=== PATIENT | female | born 1940 | race Caucasian/White ===

== ENCOUNTER → 2016-12-04 | Outpatient (CLI) | payer OTHER ==
--- NOTE | 2016-12-04 12:33 | DIAGNOSTIC IMAGING REPORT ---
BILATERAL LOWER EXTREMITY VENOUS DOPPLER HISTORY: Pain. Edema. J44.9 Chronic obstructive pulmonary disease COMPARISON STUDY: None. FINDINGS: There is normal compressibility, flow, and augmentation within the bilateral lower extremity deep venous systems. IMPRESSION: No DVT within the right or left lower extremity. Electronically signed by: Andrew Wilkerson M.D. 12/04/2016 12:32 PM Dictated Date/Time: 12/04/2016 12:32 PM
== END | disposition home or self-care (01) ==
LOC: C.ULTR 11:58
PROVIDERS: ATTEND Physician Assistant
DX: J44.9 Chronic obstructive pulmonary disease, unspecified (principal); M79.604 Pain in right leg; M79.605 Pain in left leg; R60.0 Localized edema

== ENCOUNTER → 2016-12-11 | Outpatient (CLI) | payer OTHER ==
--- NOTE | 2016-12-12 14:34 | PULMONARY FUNCTION TEST ---
Reading is based off ATS criteria. SPIROMETRY: Mild obstructive ventilatory disease with borderline reversibility. LUNG VOLUMES: Signs of hyperinflation with elevated residual volumes. DIFFUSION CAPACITY: Moderately decreased diffusion capacity. MTDD
== END | disposition home or self-care (01) ==
LOC: C.RC 09:21
PROVIDERS: ATTEND Physician Assistant
DX: J44.9 Chronic obstructive pulmonary disease, unspecified (principal)

== ENCOUNTER 2018-02-21 08:08 | Inpatient (IN) | payer OTHER ==
[2018-02-03 08:45] VITALS: BMI 33.0
--- NOTE | 2018-02-06 11:39 | PAT Medication Instructions ---
Service Date Feb 06, 2018. Current Home Medication List Acetaminophen (Tylenol), 2 TAB PO UD PRN for Pain Albuterol Hfa (Ventolin Hfa), Unknown Dose INH UD Atorvastatin (Lipitor), 1 TAB PO QPM Cholecalciferol (Vitamin D), 1 TAB PO HS Denosumab (Prolia), UD Furosemide (Lasix), 20 MG PO UD Lorazepam (Ativan), 0.5 MG PO UD PRN for anxiety Multiple Vitamins W/ Minerals (Ocuvite Adult 50+), 1 CAP PO QAM Nebivolol Hcl (Bystolic), 20 MG PO QAM Tiotropium [place]-Olodaterol (Stiolto Respimat 2.5-2.5 Mcg/Act), 1 PUFF PO BID Vitamin E (Vitamin E), 1 TAB PO QAM [albuterol neb ], 1 DOSE INH UD PRN for prn Medication Instructions For Your Scheduled Surgery - Hold the following medications 2 weeks prior to surgery: Vitamin E (Vitamin E), 1 TAB PO QAM - Continue as directed: Denosumab (Prolia), UD - Hold the following medications the morning of surgery: Furosemide (Lasix), 20 MG PO UD Multiple Vitamins W/ Minerals (Ocuvite Adult 50+), 1 CAP PO QAM - Take the following medications the morning of surgery with a sip of water: Acetaminophen (Tylenol), 2 TAB PO UD PRN for Pain (okay to take up to 4 hours prior to surgery if needed) Albuterol Hfa (Ventolin Hfa), Unknown Dose INH UD (if needed) Lorazepam (Ativan), 0.5 MG PO UD PRN for anxiety (if needed) Nebivolol Hcl (Bystolic), 20 MG PO QAM Tiotropium [place]-Olodaterol (Stiolto Respimat 2.5-2.5 Mcg/Act), 1 PUFF PO BID [albuterol neb ], 1 DOSE INH UD PRN for prn - Take the following medications as scheduled the night before surgery: Atorvastatin (Lipitor), 1 TAB PO QPM [albuterol neb ], 1 DOSE INH UD PRN for prn (if needed) Cholecalciferol (Vitamin D), 1 TAB PO HS Acetaminophen (Tylenol), 2 TAB PO UD PRN for Pain (if needed) Albuterol Hfa (Ventolin Hfa), Unknown Dose INH UD (if needed) Lorazepam (Ativan), 0.5 MG PO UD PRN for anxiety (if needed) If you have any questions please call us at [phone] or [phone] or [phone]
--- NOTE | 2018-02-06 12:40 | DIAGNOSTIC IMAGING REPORT ---
CHEST 2 VIEWS ROUTINE CLINICAL HISTORY: PAT preoperative evaluation COMPARISON STUDY: 10/29/2016 FINDINGS: Mild stable cardiomegaly. Small fixed lateral hernia. Bibasilar platelike atelectasis. Lungs otherwise appear clear. IMPRESSION: Mild cardia megaly. Platelike atelectasis both lung bases. Otherwise negative study. The above report was generated using voice recognition software. It may contain grammatical, syntax or spelling errors. Electronically signed by: Andrew Wilkerson M.D. 02/06/2018 12:38 PM Dictated Date/Time: 02/06/2018 12:38 PM
[2018-02-06 13:04] LABS: INR 0.9 (0.9-1.1); PTT PATIENT 26.6 SECONDS (21.0-31.0)
[2018-02-06 13:13] LABS: CALCIUM 9.8 mg/dl (8.5-10.1); CREATININE 0.97 mg/dl (0.60-1.20); POTASSIUM 3.7 mmol/L (3.5-5.1)
[2018-02-21] VITALS (7 sets, daily range): BP systolic 125–184; BP diastolic 75–84; PULSE 64–73; TEMP 36.4–36.6; O2SAT 94–100; Ht 144.8 cm; Wt 69.1 kg
[~2018-02-21] VITALS: Ht 144.8 cm; Wt 69.1 kg
[~2018-02-21 08:08] MED LIST: ACET-1256 PO; ACETAMINOPHEN 500 MG TAB PO SCH; CHOL1TAB42 PO; CLINDAMYCIN PHOS 150 MG/ML 2 ML VIAL IV SCH; CeleBREX 200 MG CAP PO SCH; DNSIS60; FENTANYL CITRATE INJ 50 MCG/1 ML 2 ML VIAL ONE; FURO-85 PO; GABAPENTIN 300 MG CAP PO SCH; LACTATED RINGER'S 1000ML 1,000 ML IV SCH; LORA-741 PO; LPT10 PO; MULTCAP94 PO; NEBI20TA2 PO; TIOT1AER PO; VITA1TAB4 PO; VNTHFA/IN INH; albuterol neb INH
[2018-02-21] MEDS ORDERED: HYDROmorphone INJ 0.5 MG/0.5 ML SYR IV PRN ×2 (08:15→13:00)
[2018-02-21] MEDS ORDERED: ONDANSETRON INJ 2 MG/ML 2 ML VIAL IV PRN ×2 (08:15→12:15)
[2018-02-21] MEDS ORDERED: ATROPINE SULFATE 0.1 MG/ML 5ML SYR IV PRN (08:15)
[2018-02-21] MEDS ORDERED: FENTANYL CITRATE INJ 50 MCG/1 ML 2 ML VIAL IV PRN (08:15)
[2018-02-21] MEDS ORDERED: EpHEDrine SULFATE INJ 50 MG/ML AMP IV PRN (08:15)
[2018-02-21] MEDS ORDERED: HYDROmorphone INJ 2 MG/ML SYR/VIAL ONE (09:27)
[2018-02-21] MEDS ORDERED: LIDOCAINE HCL 2% 2 ML VIAL (20MG/ML) ONE (09:27)
[2018-02-21] MEDS ORDERED: LARYING-O-JET KIT (LTA) ONE (09:27)
[2018-02-21] MEDS ORDERED: NEOSTIGMINE METHYLSULFATE 1 MG/ML 10ML VIAL ONE (09:27)
[2018-02-21] MEDS ORDERED: DEXAMETHASONE SOD INJ 4 MG/ML VIAL ONE (09:27)
[2018-02-21] MEDS ORDERED: MIDAZOLAM HCL 1 MG/ML 2ML VIAL ONE (09:27)
[2018-02-21] MEDS ORDERED: ONDANSETRON INJ 2 MG/ML 2 ML VIAL ONE ×2 (09:27→12:16)
[2018-02-21] MEDS ORDERED: PROPOFOL IV EMULSION 10 MG/ML 20 ML VIAL ONE (09:27)
[2018-02-21] MEDS ORDERED: SODIUM CHLORIDE 0.9% INJ 10 ML VIAL ONE (09:27)
[2018-02-21] MEDS ORDERED: GLYCOPYRROLATE INJ 0.2 MG/ML VIAL ONE ×2 (09:27→12:16)
[2018-02-21] MEDS ORDERED: CLINDAMYCIN 600 MG/54 ML D5W IV ONE (09:32)
--- NOTE | 2018-02-21 10:03 | History & Physical Bridge Note ---
H&P Re-Evaluation Bridge Note: I have examined the patient, reviewed the History & Physical and in the interval since the performance of the History & Physical I have noted the following changes of clinical significance: No changes noted
--- NOTE | 2018-02-21 10:05 | History and Physical ---
History & Physical Date Feb 21, 2018. Chief Complaint Back and bilateral leg pain History of Present Illness The patient is a 77 year old female with complaints of back and bilateral leg pain Additional History Hepatic Disease: No Endocrine Disorder: No Kidney Disease: No Hypertension: Yes Heart Disease: No Bleeding Tendencies: No Infectious Diseases: No Allergies Coded Allergies: No Known Allergies (Unverified , 02/21/18) Home Medications Scheduled Atorvastatin (Lipitor), 1 TAB PO QPM Cholecalciferol (Vitamin D), 1 TAB PO HS Denosumab (Prolia), UD Furosemide (Lasix), 20 MG PO UD Multiple Vitamins W/ Minerals (Ocuvite Adult 50+), 1 CAP PO QAM Nebivolol Hcl (Bystolic), 20 MG PO QAM Tiotropium [place]-Olodaterol (Stiolto Respimat 2.5-2.5 Mcg/Act), 1 PUFF PO BID Vitamin E (Vitamin E), 1 TAB PO QAM Scheduled PRN Acetaminophen (Tylenol), 2 TAB PO UD PRN for Pain Albuterol Hfa (Ventolin Hfa), Unknown Dose INH Q6 PRN for Cough Lorazepam (Ativan), 0.5 MG PO UD PRN for anxiety [albuterol neb ], 1 DOSE INH UD PRN for prn Diagnosis Lumbar spinal stenosis with neurogenic claudication and spondylolisthesis Plan of Treatment L3-S1 decompression instrumented versus in situ fusion L4-S1
[2018-02-21] MEDS ORDERED: BUPIVACAINE/EPINEPHRINE 0.5% MPF 1:200,000 30 ML VIAL ONE (10:31)
[2018-02-21] MEDS ORDERED: BACITRACIN 50000 UNIT VIAL ONE (10:31)
[2018-02-21] MEDS ORDERED: FLOSEAL HEMOSTATIC MATRIX 10ML TOP ONE (12:05)
[2018-02-21] MEDS: SODIUM CHLORIDE 0.9% 1000ML 1,000 ML IV SCH ×2 (12:12→21:18)
--- NOTE | 2018-02-21 12:12 | [facility] Operative Report ---
Operative Report Operative Date Feb 21, 2018. Pre-Operative Diagnosis Lumbar spinal stenosis with neurogenic claudication and spondylolisthesis Post-Operative Diagnosis same as preop Procedure(s) Performed 1. Lumbar decompression medial facetectomies foraminotomies L3-4 L4-5 L5-S1. #2 posterior spinal fusion L3-4 L4-5 L5-S1. #3 placement of infuse collagen sponge combined with master graft and local autograft in the posterior lateral gutters. Surgeon Dr. Ash Parra Clinical Education Academic Coordinator Surgeon(s) Randal Steele PA-C Estimated Blood Loss 150ML Findings Severe spinal stenosis Specimens none per surgeon Anesthesia Type General Description of Procedure Patient was met with preoperatively case discussed all questions addressed. After informed consent obtained patient was taken to the operative suite underwent intubation placed in prone position on the Steven table on top of the Jacob frame. All bony prominences well-padded eyes inspected to ensure no external pressure placed upon but this point the lumbar spine was prepped and draped in normal sterile fashion. Sharp dissection with the assistance of Bovie cautery was performed down to and exposing the lamina and transverse processes of L3-L4-L5 and sacral ala bilaterally. From a caudal to cephalad fashion complete laminectomy L5 for partial laminectomy of L3 is performed addressing severe lateral recess foraminal disease particular on the left. After complete decompression the transverse processes of 345 and sacral ala burred to subcortical bleeding bone. Infuse collagen sponge master graft local autograft placed in the posterior gutters. 15 round JEAN MARIE drain inserted. Incision was then closed with 1 Vicryl fascia 2-0 Vicryl subtends a 4 Monocryl for fashion closure Steri-Strips sterile dressings placed. Patient will continue PACU stable condition. Please note Rikki Steele present at the entire procedure involved in patient positioning complex portions of the surgery and fashion closure. I attest to the content of the Intraoperative Record and any orders documented therein. Any exceptions are noted below.
[2018-02-21] MEDS ORDERED: ACETAMINOPHEN IV 100 ML IV PRN (12:15)
[2018-02-21] MEDS ORDERED: NALOXONE HCL 0.4 MG/1 ML VIAL/CARP IV PRN (12:15)
[2018-02-21] MEDS ORDERED: METOCLOPRAMIDE HCL INJ 5 MG/ML 2 ML VIAL IV PRN (12:15)
[2018-02-21] MEDS ORDERED: MAGNESIUM HYDROXIDE SUSP 30 ML UDC PO PRN (12:15)
[2018-02-21] MEDS ORDERED: DO NOT ADMINISTER FLU VACCINE PRN (12:15)
[2018-02-21] MEDS ORDERED: FAMOTIDINE 20 MG TAB PO PRN (12:15)
[2018-02-21] MEDS ORDERED: hydrOXYzine HCL 25 MG TAB PO PRN (12:15)
[2018-02-21] MEDS ORDERED: PROMETHAZINE HCL INJ 12.5 MG in SODIUM CHLORIDE 0.9% 50ML 50 ML IV PRN (12:15)
[2018-02-21] MEDS ORDERED: ALUMINUM/MAGNESIUM SUSP 30 ML UDC PO PRN (12:15)
[2018-02-21] MEDS ORDERED: LORAZEPAM INJ 0.5 MG in SYRINGE 0 ML IV PRN (12:15)
[2018-02-21] MEDS ORDERED: SOD PHOSPHATE/SOD BIPHOSPHATE ENEMA 132 ML BTL PR PRN (12:15)
[2018-02-21] MEDS ORDERED: DO NOT ADMINISTER PNEUMOCOCCAL VACCINE PRN (12:15)
[2018-02-21] MEDS ORDERED: BISACODYL 10 MG SUPP PR PRN (12:15)
[2018-02-21] MEDS ORDERED: ACETAMINOPHEN 500 MG TAB PO PRN (12:15)
[2018-02-21] MEDS ORDERED: ROCURONIUM BROMIDE 10 MG/ML 5 ML VIAL ONE (12:16)
--- NOTE | 2018-02-21 12:48 | DIAGNOSTIC IMAGING REPORT ---
SPINE ONE VIEW, ANY LEVEL HISTORY: 77 years-old Female L3-S1 INSITU FUSION status post lumbar spinal fusion COMPARISON: CT abdomen and pelvis 11/12/2016 TECHNIQUE: Single lateral spot fluoroscopic image of the lower lumbar spine was obtained utilizing 4.7 seconds fluoroscopy time FINDINGS: Metallic marker is noted overlying the soft tissues posterior to the L5-S1 disc space. Alignment is satisfactory. Multilevel spondylitic spurring and facet arthropathy redemonstrated. IMPRESSION: Fluoroscopic assistance as above. The above report was generated using voice recognition software. It may contain grammatical, syntax or spelling errors. Electronically signed by: Garth Pinto M.D. 02/21/2018 12:47 PM Dictated Date/Time: 02/21/2018 12:45 PM
[2018-02-21] MEDS ORDERED: PHENYLEPHRINE HCL INJ 10 MG/ML VIAL ONE (14:14)
--- NOTE | 2018-02-21 14:35 | Anesthesiology Progress Note ---
Anesthesia Post Op Note Date & Time Feb 21, 2018 at 14:30 Vital Signs Pain Intensity: 9 Vital Signs Past 12 Hours Date Time Temp Pulse Resp B/P (MAP) Pulse Ox O2 Delivery O2 Flow Rate FiO2 02/21/18 14:15 69 12 160/73 98 Oxymask 4 02/21/18 14:05 69 8 158/71 99 Oxymask 10 02/21/18 13:55 68 9 156/73 94 T-piece 40 02/21/18 13:45 69 10 152/70 97 CPAP 45 Mechanical Ventilator 02/21/18 13:35 66 7 143/66 97 CPAP 45 Mechanical Ventilator 02/21/18 13:25 67 8 144/70 96 CPAP 50 Mechanical Ventilator 02/21/18 13:15 70 23 147/79 93 CPAP 25 Mechanical Ventilator 02/21/18 13:13 25 02/21/18 13:05 36.5 69 8 141/69 100 CPAP 25 Mechanical Ventilator 02/21/18 08:49 36.5 73 20 184/80 100 Nasal Cannula Notes Mental Status: alert / awake / arousable, participated in evaluation Pt Amnestic to Procedure: Yes Nausea / Vomiting: adequately controlled Pain: adequately controlled Airway Patency, RR, SpO2: stable & adequate BP & HR: stable & adequate Hydration State: stable & adequate Anesthetic Complications: no major complications apparent Patient had a prolonged wakeup which required us to take the patient to the PACU intubated and placed on pressure support through the ventilator. The patient was breathing spontaneously, was fully reversed and had a regular respiratory pattern but with volumes around 200ml and patient was responsive but only opened her eyes to command. In the PACU, patient was successfully weaned to a T-piece with supplemental oxygen. She slowly became much more awake and responsive and was easily able to squeeze my hand on command and could keep her head elevated from the pillow for at least five seconds. Given that her vital signs were stable, she was responsive and had a RR of 12 I decided to extubate in the PACU. This was done after the patient was suctioned. She had an oxymask placed after extubation and continued with spontaneous respirations with supplemental oxygen. Patient was then weaned to NC oxygen and she denied any pain and only mild nausea. After she met PACU discharge criteria, it was felt she was appropriate to transfer to the floor on continuous pulse oximetry.
[2018-02-21] MEDS: OXYCODONE HCL IR 5 MG TAB (IMMEDIATE RELEASE) PO PRN (17:13)
[2018-02-21] MEDS: FUROSEMIDE 20 MG TAB PO SCH (18:18)
[2018-02-21] MEDS: CEFAZOLIN IV 2,000 MG in SYRINGE 0 ML IV SCH (18:19)
[2018-02-21] MEDS: DOCUSATE SODIUM/SENNA 50/8.6MG TAB PO SCH (20:15)
[2018-02-21] MEDS: ATORVASTATIN 10 MG TAB PO SCH (20:15)
[2018-02-21] MEDS ORDERED: ALBUTEROL HFA 8 GM INHALER INH PRN (21:00)
[2018-02-21] MEDS ORDERED: ALBUT/IPRATROP 3MG/0.5MG NEB 3 ML VIAL INH PRN (21:00)
[2018-02-21] MEDS: STIOLTO~ORDER AWAITING ACTION SCH (23:21)
[2018-02-22] VITALS (8 sets, daily range): BP systolic 102–141; BP diastolic 54–78; PULSE 64–75; TEMP 36.2–37.2; O2SAT 90–94
--- NOTE | 2018-02-22 00:15 | HISTORY & PHYSICAL EXAMINATION ---
DATE OF ADMISSION: 02/21/2018 CHIEF COMPLAINT: Status post back pain who comes for medical management. HISTORY OF PRESENT ILLNESS: A 77-year-old female with past medical history significant for COPD,high blood pressure, status post back surgery, tolerated the procedure okay. Sitting on the bed. Dressing and drain intact. She felt little dizzy and nauseous earlier, but feeling okay now. Has some headache, some blurred vision. She says she has an appointment with eye doctor. Denies any earache, no runny nose, no sore throat, no difficulty swallowing. No chest pain. She has chronic cough, chronic shortness of breath, uses oxygen. She recently went to [facility] for issues for shortness of breath and was treated with steroid and antibiotic in first week of December. She says her cough has improved since then. She has some mild abdominal discomfort. Normal bowel and bladder movements. Appetite is not great. ALLERGIES: No known drug allergies. PAST MEDICAL HISTORY: As mentioned above. PAST SURGICAL HISTORY: Back surgery. MEDICATIONS: The patient is on Ativan as needed, albuterol q. 6 hours p.r.n., vitamin D 5000 units p.o. daily, multivitamins with mineral 1 tablet daily, Stiolto Respimat 1 puff b.i.d., Lipitor 20 mg p.o. q.a.m., Lasix 20 mg Saturday, Saturday, Saturday, and Bystolic 20 mg p.o. daily. FAMILY HISTORY: Mother of heart attack and father is also . SOCIAL HISTORY: Quit smoking prior to coming to the hospital a couple of days ago, prior to that smoked 1 pack in a week. Alcohol, very rarely. REVIEW OF SYMPTOMS: As per HPI. Rest of review of systems negative. PHYSICAL EXAMINATION: GENERAL: The patient is of moderate build, not in distress. VITAL SIGNS: Temperature 36.6, pulse 64, respiratory rate 17, blood pressure 125/76, and oxygen 97% on 2 liters. HEENT: No pallor, no icterus. NECK: No JVD, no neck masses. CARDIOVASCULAR: S1 and S2 heard, regular rate and rhythm, no murmur, no gallop. RESPIRATORY SYSTEM: Clear to auscultation bilaterally. No wheezing, no crackles. ABDOMEN: Soft, bowel sounds present, nontender. No distention. CENTRAL NERVOUS SYSTEM: Nonfocal. EXTREMITIES: No edema. No erythema seen. MUSCULOSKELETAL: Status post back surgery. Dressing and drain intact. LABORATORIES: Not available. ASSESSMENT AND PLAN: This is a 77-year-old female, status post back surgery. 1. Status post back surgery. Further management as per orthopedics. Pain control and DVT prophylaxis and PT/OT as per ortho. 2. History of hypertension. Continue home medication, Bystolic(replaced with atenolol by pharmacy). Monitor the blood pressure. 3. History of hyperlipidemia. Continue statin. 4. History of chronic obstructive pulmonary disease. Continue home nebs and inhalers and oxygen. We will monitor. MTDD
[2018-02-22] MEDS: SODIUM CHLORIDE 0.9% 1000ML 1,000 ML IV SCH (01:46)
[2018-02-22] MEDS: CEFAZOLIN IV 2,000 MG in SYRINGE 0 ML IV SCH (01:46)
[2018-02-22] MEDS: LORAZEPAM 0.5 MG TAB PO PRN (01:47)
[2018-02-22] MEDS: OXYCODONE HCL IR 5 MG TAB (IMMEDIATE RELEASE) PO PRN ×2 (04:09→09:59)
[2018-02-22 06:28] LABS: HEMATOCRIT 33.3 % (37-47); HEMOGLOBIN 10.7 g/dL (12.0-16.0); IG# 0.04 K/uL (0.00-0.02); LYMPH % 4.1 %; LYMPH ABS # 0.53 K/uL (1.2-3.4); MEAN CELL VOLUME 98.8 fL (80-100); MEAN CORPUSCULAR HEMOGLOBIN 31.8 pg (25-34); MEAN CORPUSCULAR HGB CONC 32.1 g/dl (32-36); MEAN PLATELET VOLUME 10.6 fL (7.4-10.4); MONO % 9.3 %; NEUT % 86.3 %; NEUT ABS # 11.12 K/uL (1.4-6.5); PLATELET COUNT 175 K/uL (130-400); RED CELL DISTRIBUTION WIDTH CV 14.9 % (11.5-14.5); RED CELL DISTRIBUTION WIDTH SD 53.3 fL (36.4-46.3); WHITE BLOOD COUNT 12.89 K/uL (4.8-10.8)
[2018-02-22 07:01] LABS: CALCIUM 8.5 mg/dl (8.5-10.1); CREATININE 1.18 mg/dl (0.60-1.20); POTASSIUM 4.1 mmol/L (3.5-5.1)
[2018-02-22] MEDS: STIOLTO~ORDER AWAITING ACTION SCH ×2 (08:00→16:00)
[2018-02-22] MEDS ORDERED: NURSING VERBAL MED ORDER ONE (08:30)
--- NOTE | 2018-02-22 08:55 | Progress Note ---
Progress Note Date of Service Feb 22, 2018. Progress Note Patient's back pain is controlled left leg symptoms improved vital signs stable. On exam she is good strength testing appears comfortable. Assessment status post lumbar decompression fusion. Plan at this time initiate physical therapy today advance her bowel regimen strongly considering rehab facility Saturday.
[2018-02-22] MEDS ORDERED: NEBIVOLOL HCL 20 MG PO SCH (09:00)
--- NOTE | 2018-02-22 18:19 | Progress Note ---
Internal Med Progress Note Date of Service: Feb 22, 2018. Provider Documentation: SUBJECTIVE: Feels fine, minimal pain or discomfort on surgical site No radiation pain on the upper thigh or knee Ambulating independently Patient reports of having flushed feeling in her face and cheeks with itching Concern for possible drug reaction Patient was just taken oxycodone for pain Order for Benadryl DC oxycodone, changed to Toradol as needed OBJECTIVE: Vital Signs-as noted below Exam: General-very pleasant, no apparent distress Eyes-sclera nonicteric, pupils bilateral equal reactive to light extraocular muscles ENT-flushed face, moist oral mucosa Neck-supple, no JVD no carotid bruit trachea midline Lungs-clear to auscultate, no wheeze or Heart-S1 and S2, no murmur Abdomen-soft nontender, no organomegaly bowel sounds Extremities-status post spinal decompression surgery, no lower extremity edema or rash no deformed Neuro-no focal neurological deficit Lab data as noted below. ASSESSMENT & PLAN: LUMBAR SPINAL STENOSIS, Status post spinal decompression surgery POD 1 Recovering well postop PT OT management as per spinal orthopedics HYPERTENSION Blood pressure stable Was on Bystolic (nonformulary at [facility] ) Replaced with atenolol HYPERLIPIDEMIA Continue statin POSSIBLE ALLERGIC REACTION TO DRUG Reports of flushed feeling with redness and itching on face Symptoms started after taking oxycodone Patient never taken any narcotics pain meds in the past Oxycodone discontinue Given Benadryl as needed for symptoms of itching and redness Pain meds changed to Toradol as needed DVT PROPHYLAXIS As per orthopedics SCD and teds Pharmacological anticoagulation avoided for recent spinal surgery DISPOSITION Per orthopedics She is medically stable to be discharged when appropriate by spine surgery Vital Signs: Date Time Temp Pulse Resp B/P (MAP) Pulse Ox O2 Delivery O2 Flow Rate FiO2 02/22/18 15:36 Room Air 02/22/18 15:22 36.2 64 22 110/68 (82) 92 Room Air 02/22/18 11:44 36.6 64 20 110/60 (77) 91 Room Air 02/22/18 09:30 36.6 68 24 130/78 (95) 93 Room Air 02/22/18 08:48 67 132/65 (87) 02/22/18 08:30 36.8 68 22 102/54 (70) 92 Room Air 02/22/18 07:15 Room Air 02/22/18 06:36 36.7 74 18 138/76 (96) 92 Room Air 02/22/18 03:52 36.6 75 17 141/76 (97) 94 Nasal Cannula 2.0 02/21/18 23:15 Nasal Cannula 2.0 02/21/18 23:02 36.4 68 18 130/75 (93) 95 Room Air 02/21/18 20:22 36.6 64 17 125/76 (92) 97 Nasal Cannula 2.0 Lab Results: Results Past 24 Hours Test 02/22/18 06:13 Range/Units White Blood Count 12.89 4.8-10.8 K/uL Red Blood Count 3.37 4.2-5.4 M/uL Hemoglobin 10.7 12.0-16.0 g/dL Hematocrit 33.3 37-47 % Mean Corpuscular Volume 98.8 80-100 fL Mean Corpuscular Hemoglobin 31.8 25-34 pg Mean Corpuscular Hemoglobin Concent 32.1 32-36 g/dl Platelet Count 175 130-400 K/uL Mean Platelet Volume 10.6 7.4-10.4 fL Neutrophils (%) (Auto) 86.3 % Lymphocytes (%) (Auto) 4.1 % Monocytes (%) (Auto) 9.3 % Eosinophils (%) (Auto) 0.0 % Basophils (%) (Auto) 0.0 % Neutrophils # (Auto) 11.12 1.4-6.5 K/uL Lymphocytes # (Auto) 0.53 1.2-3.4 K/uL Monocytes # (Auto) 1.20 0.11-0.59 K/uL Eosinophils # (Auto) 0.00 0-0.5 K/uL Basophils # (Auto) 0.00 0-0.2 K/uL RDW Standard Deviation 53.3 36.4-46.3 fL RDW Coefficient of Variation 14.9 11.5-14.5 % Immature Granulocyte % (Auto) 0.3 % Immature Granulocyte # (Auto) 0.04 0.00-0.02 K/uL Sodium Level 138 136-145 mmol/L Potassium Level 4.1 3.5-5.1 mmol/L Chloride Level 104 98-107 mmol/L Carbon Dioxide Level 28 21-32 mmol/L Anion Gap 6.0 3-11 mmol/L Blood Urea Nitrogen 27 7-18 mg/dl Creatinine 1.18 0.60-1.20 mg/dl Est Creatinine Clear Calc Drug Dose 31.0 ml/min Estimated GFR () 50.8 Estimated GFR (Non- 43.8 BUN/Creatinine Ratio 22.5 10-20 Random Glucose 130 70-99 mg/dl Calcium Level 8.5 8.5-10.1 mg/dl
[2018-02-22] MEDS: KETOROLAC TROMETHAMINE 15 MG/ML VIAL IV PRN (19:56)
[2018-02-22] MEDS: DOCUSATE SODIUM/SENNA 50/8.6MG TAB PO SCH (19:56)
[2018-02-22] MEDS: ATORVASTATIN 10 MG TAB PO SCH (19:57)
[2018-02-23] MEDS: LORAZEPAM 0.5 MG TAB PO PRN ×2 (02:53→16:29)
[2018-02-23 02:57] VITALS: BP 142/62; PULSE 82; TEMP 37.1; O2SAT 92
[2018-02-23] MEDS: POLYETHYLENE (MIRALAX) 17 GM PACK PO SCH ×2 (06:05→12:00)
[2018-02-23 06:38] VITALS: BP 150/63; PULSE 77; TEMP 37; O2SAT 96
[2018-02-23] MEDS: STIOLTO~ORDER AWAITING ACTION SCH ×4 (07:32→21:53)
--- NOTE | 2018-02-23 10:10 | Discharge Instructions ---
Discharge Instructions Date of Service Feb 23, 2018. Admission Reason for Admission: Spinal Stenosis Discharge Discharge Diagnosis / Problem: lumbar stenosis Discharge Goals Goal(s): Improve function Activity Recommendations Activity Limitations: per Instructions/Follow-up section . Instructions / Follow-Up Instructions / Follow-Up ACTIVITY RECOMMENDATIONS: SELF CARE INSTRUCTIONS AFTER THORACIC/LUMBAR FUSIONS 1. You may walk to your tolerance. It is good exercise for your legs and back. Expect some back and intermittent leg aches and pains. 2. You may perform "counter-top" level activities (make a sandwich, efrain with a project, etc.). 3. No bending or lifting of more than 10 pounds or back twisting of any nature (roll like a log when turning in bed). 4. You may ride in a car for 20-30 minutes at a time. No driving until after your first visit with your doctor. 5. Frequent changes of position and restricting sitting to 30 minutes at a time will help limit the amount of back spasms and stiffness you may experience. 6. You may discontinue the use of ambulatory aids (cane, crutches, etc.) once your strength and confidence allow. 7. You may office technology instructor the shower and let water strike your incision when you arrive home at least once daily. Do not take a tub bath, sit in a hot tub or go into a swimming pool until after your first recheck in the office. SPECIAL CARE INSTRUCTIONS: VERY IMPORTANT TO READ AND REVIEW A. Your surgical incision has been closed with a cosmetic suture under the skin that will dissolve in about 6 weeks. In 14 days, you can use a pair of clean scissors and cut the suture that is left outside of the skin at the ends of your incision. 1. The small skin tapes can be removed 7 days after surgery if they have not fallen off by that point. 2. You may keep the wound open to air as much as possible to promote healing after post-op day number 5 unless told otherwise by your doctor. 3. If you think the wound looks like it is becoming infected (redness or worsening drainage) and/or you are experiencing fever, chill or worsening back pain and muscle spasms, contact the office so that we may evaluate you as soon as possible. B. Complications are uncommon, but please contact us if you have any signs or symptoms of: 1. wound infection (fever higher than 102.5 degrees F, redness, separation of wound, drainage, or increasing pain from the incision) 2. blood clots in legs (pain, swelling, redness and warmth in legs) 3. urinary tract infection (fever higher than 102.5 degrees F, burning upon urination or increased frequency of urination) 4. nerve problems (inability to walk on your toes or heels, numbness, loss of bowel or bladder control) 5. any other symptoms that concern you C. Please call the office at if you have any concerns or questions about your operation or recovery. D. No smoking! Smoking drastically decreases the chance of a solid fusion. E. Do not take any anti-inflammatory medications (Indocin, Advil, Motrin, Aspirin, Naprosyn, etc.) as these may inhibit the chance of a solid fusion. Tylenol is okay to take for pain. MANAGING PAIN AFTER SPINAL SURGERY 1. Narcotic medication is intended for short-term use and will be provided for surgical pain. Surgical pain usually lasts for a period of 4-6 weeks. Narcotic medication includes Percocet, Vicodin, Darvocet, Tylenol #3 or Lortab. 2. Longer-term pain is more appropriately treated with non-narcotic medication such as Tylenol ES. 3. Muscle spasm is not appropriately treated with narcotics. Muscle relaxers such as Soma, Flexeril or Skelaxin can be used along with Tylenol ES. 4. Remember that we all live with some "aches and pains". This is not unusual or uncommon after an injury or as we get older. a. Back pain is expected and may include muscle spasms for 4 to 6 weeks after surgery. The pain should gradually improve. If the pain worsens for no apparent reason, please contact the office. b. Intermittent leg pain may also be experienced and should not be concerned about unless it worsens for no apparent reason. If so, please contact the office. 5. We will provide appropriate medication within the normal guidelines of their prescribed use. We will also be very cautious and aware of potential abuse and extended duration of patients' medication needs. a. Pain medications are for your comfort and to assist with sleep and rest so that the tissue can heal. They are not provided in order to return to normal activity and should not be used through the day. To do so or worsening pain at night can result from ongoing tissue damage and development of tolerance to the prescribed medicine. 6. Please allow 2-3 days to process refills. Prescriptions will not be mailed but must be picked up at the office. FOLLOW UP VISIT: Keep your scheduled follow-up appointment. Any questions, please call the office at . Current Hospital Diet Patient's current hospital diet: Regular Diet Discharge Diet Recommended Diet: Regular Diet Procedures Procedures Performed: 1. Lumbar decompression medial facetectomies foraminotomies L3-4 L4-5 L5-S1. #2 posterior spinal fusion L3-4 L4-5 L5-S1. #3 placement of infuse collagen sponge combined with master graft and local autograft in the posterior lateral gutters. Pending Studies Studies pending at discharge: no Medical Emergencies . Who to Call and When: Medical Emergencies: If at any time you feel your situation is an emergency, please call 911 immediately. . Non-Emergent Contact Non-Emergency issues call your: Primary Care Provider . "Provider Documentation" section prepared by Ash Parra. .
--- NOTE | 2018-02-23 10:50 | Progress Note ---
Progress Note Date of Service Feb 23, 2018. Progress Note Patient's back pain is controlled leg symptoms are improved. Vital signs stable. On exam she is in the chair at bedside is good strength testing. Plan at this time we are considering [facility] versus home with home health Saturday.
[2018-02-23] MEDS ORDERED: NURSING VERBAL MED ORDER ONE (12:15)
[2018-02-23 15:24] VITALS: BP 133/72; PULSE 85; TEMP 37.1; O2SAT 91
[2018-02-23] MEDS: KETOROLAC TROMETHAMINE 15 MG/ML VIAL IV PRN (15:33)
--- NOTE | 2018-02-23 15:47 | Progress Note ---
Internal Med Progress Note Date of Service: Feb 23, 2018. Provider Documentation: pt been doing well medically /does not need a Medicine rounding Chart reviewed will sign off no bill will be charged today Vital Signs: Date Time Temp Pulse Resp B/P (MAP) Pulse Ox O2 Delivery O2 Flow Rate FiO2 02/24/18 07:47 Nasal Cannula 2.0 02/24/18 06:12 37.2 76 18 153/76 (101) 96 Nasal Cannula 2.0 02/23/18 23:30 Room Air 02/23/18 23:25 37.0 82 16 139/66 (90) 93 Room Air 02/23/18 19:10 Room Air 02/23/18 15:33 Room Air 02/23/18 15:24 37.1 85 18 133/72 (92) 91 Room Air
[2018-02-23] MEDS: DOCUSATE SODIUM/SENNA 50/8.6MG TAB PO SCH (19:20)
[2018-02-23] MEDS: ATORVASTATIN 10 MG TAB PO SCH (20:35)
[2018-02-23 23:25] VITALS: BP 139/66; PULSE 82; TEMP 37; O2SAT 93
[2018-02-24] MEDS: LORAZEPAM 0.5 MG TAB PO PRN (00:29)
[2018-02-24] MEDS: KETOROLAC TROMETHAMINE 15 MG/ML VIAL IV PRN (06:05)
[2018-02-24 06:12] VITALS: BP 153/76; PULSE 76; TEMP 37.2; O2SAT 96
[2018-02-24] MEDS: STIOLTO~ORDER AWAITING ACTION SCH ×2 (07:40→16:48)
[2018-02-24] MEDS: FUROSEMIDE 20 MG TAB PO SCH ×2 (07:41→13:55)
[2018-02-24 09:58] VITALS: BP_SYST 132; BP_SYST 153; BP_DIAS 75; BP_DIAS 76; PULSE 76; PULSE 78; TEMP 37.2; O2SAT 92; O2SAT 96
[2018-02-24 10:30] VITALS: BP 109/72; PULSE 90; O2SAT 99
[2018-02-24 15:00] VITALS: BP 132/75; PULSE 78; TEMP 37.2; O2SAT 92
--- NOTE | 2018-02-24 15:52 | Discharge Summary ---
Orthopedic Discharge Summary Admission Date/Reason Feb 21, 2018 at 12:16 Spinal Stenosis. Discharge Date/Disposition Feb 24, 2018 Home Diagnosis Principal Diagnosis: Spinal stenosis with neurogenic claudication Admission Physical Exam As per Admitting History & Physical. Hospital Course Patient underwent lumbar decompression fusion tolerated this well was taken to the orthopedic floor possibly. Postop day #1 leg symptoms were improved she is ambulating she progressed the postop day #2 subsequently was discharged home on postop day #3. Discharge orders chart for further review. Discharge Instructions Please refer to the electronic Patient Visit Report (Discharge Instructions) for additional information.
== END 2018-02-24 17:15 | disposition home or self-care (01) | DRG 460 ==
LOC: C.ACU 08:08 → C.3E 12:16 → ENRESERV 15:11
PROVIDERS: ADMIT Orthopaedic Surgery Orthopaedic Surgery of the Spine; ATTEND Orthopaedic Surgery Orthopaedic Surgery of the Spine
PROC: 0SG1071 Fusion of 2 or more Lumbar Vertebral Joints with Autologous Tissue Substitute, Posterior Approach, Posterior Column, Open Approach (ICD-10-PCS; principal; 2018-02-21 10:15)
PROC: 3E0U0GB Introduction of Recombinant Bone Morphogenetic Protein into Joints, Open Approach (ICD-10-PCS; principal; 2018-02-21 10:15)
PROC: 0SG3071 Fusion of Lumbosacral Joint with Autologous Tissue Substitute, Posterior Approach, Posterior Column, Open Approach (ICD-10-PCS; principal; 2018-02-21 10:15)
DX: M48.062 Spinal stenosis, lumbar region with neurogenic claudication (principal); M43.16 Spondylolisthesis, lumbar region; J44.9 Chronic obstructive pulmonary disease, unspecified; I10 Essential (primary) hypertension; E78.5 Hyperlipidemia, unspecified; L29.8 Other pruritus; T40.2X5A Adverse effect of other opioids, initial encounter; Y92.230 Patient room in hospital as the place of occurrence of the external cause

== ENCOUNTER 2019-07-15 06:43 | Observation (INO) ==
[2019-07-15] MEDS ORDERED: HEPARIN (PORCINE) 1000 UNIT/ML 10 ML (CATH LAB USE ONLY) ONE ×2 (07:38→10:18)
[2019-07-15] MEDS ORDERED: NiCARDipine HCL INJ 2.5 MG/ML 10 ML AMP ONE (07:38)
[2019-07-15] MEDS ORDERED: NITROGLYCERIN/D5W 100MCG/ML 20ML SYR ONE (07:39)
[2019-07-15] MEDS ORDERED: fentaNYL citrate 100 MCG/2 ML VIAL ONE (07:39)
[2019-07-15] MEDS ORDERED: MIDAZOLAM HCL 1 MG/ML 2ML VIAL ONE ×2 (07:39→09:39)
--- NOTE | 2019-07-15 08:25 | History & Physical Bridge Note ---
Date of Service July 15, 2019 History & Physical Bridge Note I have examined the patient, reviewed the History & Physical and in the interval since the performance of the History & Physical I have noted the following changes of clinical significance: no changes noted
--- NOTE | 2019-07-15 08:26 | Pre Anesthesia Assessment ---
Date of Service July 15, 2019 Pre Sedation Assessment Vital Signs Temp Pulse Resp BP Pulse Ox 07/15/19 07:07 36.5 C 77 20 174/98 H 98 Cardiovascular + regular rate and + regular rhythm Respiratory + diminished lung sounds Pre-Sedation Airway Assessment Smoking Status: Never smoker Short, Thick Neck: No Thyromental Distance: > or= 3.5 Finger Breadths Oral Cavity: + WNL Mallampati Class: III ASA: ASA3 NPO Status Date of Last Intake of Fluids: 07/14/19 Date of Last Intake of Solid Food: 07/14/19 Procedure Planning Contraindications for Sedation: none Current Medications Reviewed: Yes Notes The planned sedation has been discussed with the patient. Informed Consent was obtained. I have identified the patient, determined the appropriateness of sedation and have assessed the patient immediately prior to the procedure. All medicine(s) and interventions are by my order.
--- NOTE | 2019-07-15 09:51 | Cardiac Catheterization ---
Cardiac Cath Procedure: Brief Procedure Date July 15, 2019 Pre-Procedure Diagnosis Pre-Procedure Diagnosis: CHF and Cardiothoracic Symptom AUC Score AUC Score: 8 Post-Procedure Diagnosis Post-Procedure Diagnosis: Severe CAD Procedure(s) Performed Procedure(s) Performed: Coronary Angiography and Left Heart Cath Lead Sprinkler Jordan Galaviz MD Sugarcane Planter(s) Dinesh Caldera Estimated Blood Loss Estimated Blood Loss: <25 Medication(s) Medication(s): Fentanyl (12.5 mcg IVx3), Heparin (4000 units IV), Lidocaine 1% (Local infiltration access site), Nicardipine (250 mcg intra-arterial x 4 after arterial sheath insertion and during procedure), Nitroglycerin (200 mcg intrarterial x 2) and Versed (1 mg IV x 2) Preliminary Findings Right dominant coronary anatomy Diffuse coronary atherosclerosis all vasculature with vessel tortuosity and mild ectasia Left main: Mildly calcified without obstruction Left anterior descending: Type III in distribution modest in caliber. It gives rise to a large diagonal and large septal branch at the end of its proximal third. Within the left anterior descending there is diffuse atherosclerotic changes and proximal calcification with a long area of narrowing in its proximal segment most severe 40% stenosis. Left circumflex: Moderately large but nondominant. It gives rise to a small first marginal or large second marginal then a bifurcating third marginal before continuing along the AV groove is a thin vessel. There are diffuse moderate irregularities. The origin of the second marginal branch is narrowed by 60 to 70%. Right coronary artery: Very large dominant vessel giving rise to a sinoatrial branch at its origin a right ventricular branch in its midportion, a very large marginal branch along the AV groove along posterior descending artery and then to posterior ventricular branch is a small caliber. There is moderate irregularities within the right coronary artery with a discrete 70% stenosis in its midportion LV angiography: Not performed LVEDP 12 Recommendations Recommendations: PCI without planned CABG Specimens Specimens: None Fluids (cc crystalloids) Fluids (cc crystalloids): 114 Procedural Complication(s) None Disposition PCI same setting
--- NOTE | 2019-07-15 10:11 | Cardiac Catheterization ---
Cardiac Cath Procedure Full Procedure Date July 15, 2019 Pre-Procedure Diagnosis Pre-Procedure Diagnosis: CHF and Cardiothoracic Symptom AUC Score AUC Score: 8 Post-Procedure Diagnosis Post-Procedure Diagnosis: Severe CAD Procedure(s) Performed Procedure(s) Performed: Coronary Angiography and Left Heart Cath Heel Cutter Jordan Galaviz MD Linux Developer(s) Dinesh Caldera Estimated Blood Loss Estimated Blood Loss: <25 Medication(s) Medication(s): Fentanyl (12.5 mcg IVx3), Heparin (4000 units IV), Lidocaine 1% (Local infiltration access site), Nicardipine (250 mcg intra-arterial x 4 after arterial sheath insertion and during procedure), Nitroglycerin (200 mcg intrarterial x 2) and Versed (1 mg IV x 2) Summary of Findings Right dominant coronary anatomy Diffuse coronary atherosclerosis all vasculature with vessel tortuosity and mild ectasia Left main: Mildly calcified without obstruction Left anterior descending: Type III in distribution modest in caliber. It gives rise to a large diagonal and large septal branch at the end of its proximal third. Within the left anterior descending there is diffuse atherosclerotic changes and proximal calcification with a long area of narrowing in its proximal segment most severe 40% stenosis. Left circumflex: Moderately large but nondominant. It gives rise to a small first marginal or large second marginal then a bifurcating third marginal before continuing along the AV groove is a thin vessel. There are diffuse moderate irregularities. The origin of the second marginal branch is narrowed by 60 to 70%. Right coronary artery: Very large dominant vessel giving rise to a sinoatrial branch at its origin a right ventricular branch in its midportion, a very large marginal branch along the AV groove along posterior descending artery and then to posterior ventricular branch is a small caliber. There is moderate irregularities within the right coronary artery with a discrete 70% stenosis in its midportion LV angiography: Not performed LVEDP 12 Hemodynamics Rest Ao:: 175/67/110 Final Ao: 138/69/100 LV: 187/2/12, LVEDP 12 Recommendations Recommendations: PCI without planned CABG Specimens Specimens: None Radiation Exposure (mGy) 819 Contrast (mls) 97 Fluids (cc crystalloids) Fluids (cc crystalloids): 114 Anesthesia Start time: 842, stop time 944 Procedural Complication(s) Patient had marked tortuosity of subclavian and aortic junction. Initial radial access was used however right coronary catheter is unable to be advanced over wire and access was switched to femoral. Disposition PCI same setting I attest to the content of the Intraoperative Record and any orders documented therein. Any exceptions are noted below. 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 Echocardiogram demonstrates persistent apical as well as inferoseptal wall motion abnormality. Preserved overall LV function CAD Presenation: Stable angina Anginal Classification: CCS III Heart Failure: Yes Cardiogenic Shock within 24 Hours: No Cardiac Arrest within 24 Hours: No Imaging Studies Past 6 Months: Yes Stress Studies Past 6 Months: No Standard Exercise Test: No Stress Echocardiogram: No Stress Testing w/SPECT MPI: No Cardiac CTA: No Coronary Anatomy Dominant: Right Left Main (% Stenosis): Normal LAD (% Stenosis): Proximal (40), Mid (Diffuse moderate atherosclerotic changes without obstruction) and Distal (30, 30) D1 (% Stenosis): Normal D2 (% Stenosis): Normal Circumflex (% Stenosis): Proximal (20) and Mid (30) OM1 (% Stenosis): Normal OM2 (% Stenosis): Proximal (6070) RCA (% Stenosis): Mid (80) R PDA (% Stenosis): Normal (20) R PL1 (% Stenosis): Normal AM (% Stenosis): Normal Left Ventricular Angiography EF (%): N/A Diagnostic Physicians Name: Jordan Galaviz MD Status: Elective Closure Device Percutaneous Entry Location: Radial (Radial access used for initial imaging with marked tortuosity subclavian aorta. Procedure switch to femoral access obtained right coronary anatomy injections and further proceed) Recommendations: PCI without planned CABG
[2019-07-15] MEDS ORDERED: CLOPIDOGREL BISULFATE 300 MG TAB ONE (10:28)
--- NOTE | 2019-07-15 10:40 | Post Anesthesia Assessment ---
Date of Service July 15, 2019 Post Sedation Assessment Vital Signs Temp Pulse Resp BP Pulse Ox 07/15/19 07:07 97.7 F 77 20 174/98 H 98 Recovery Score Activity: Moves 4 extremities Respiration: Deep Breath/Cough Circulation: +/-20% PreAnes Value Consciousness: Fully Awake Oxygen Saturation: O2 needed for >90% Discharge Sedation Level of Care: Fast Track Phase II Post Sedation Plan On clinical assessment, the patient appears to have tolerated the sedation without complications. Patient is recovering as anticipated. Patient will continue to be monitored by nursing and may be discharged when sedation discharge criteria are met per below protocol. Upon Completions of procedure up to 15 minutes continue every 5 minute vital signs and the P.A.R. score; then discharge to a Phase I or Fast Track to Phase I I per the following guidelines: * Discharge Patient to appropriate Phase II area if PAR is 8 or greater or return to pre- procedure baseline. The post - procedure orders will be as directed. * If PAR score is less than 8 or not return to pre-procedure baseline then patient will follow Phase I monitoring till PAR is reached for Phase II. The Phase I may be done in procedure room or may call to secure a Phase I area. * If naloxone or flumazenil are used for reversal, hold in Phase I for continued monitoring from when last reversal dose was given for a minimum of 60 minutes or longer pending the nurse and/or physician discretion of patient condition before discharge to Phase II. Please call the Sedation Physician to re-evaluate and complete post-note for discharge to Phase II area. Do NOT discharge from procedure sedation or Phase 1 until post- sedation evaluation note is complete by procedure /sedation MD Sedation Discharge Instructions to be given to the patient at discharge to home.
[2019-07-15] MEDS ORDERED: ONDANSETRON INJ 2 MG/ML 2 ML VIAL IV PRN (10:42)
[2019-07-15] MEDS ORDERED: SODIUM CHLORIDE 0.9% 1000ML 1,000 ML IV SCH (10:45)
[2019-07-15] MEDS ORDERED: TRAMADOL HCL 50 MG TABLET PO PRN (10:51)
--- NOTE | 2019-07-15 11:06 | Post Operative Brief Note ---
Cardiology Brief Post Op Date of Surgery July 15, 2019 Pre & Post Diagnosis Successful PCI of mid RCA with single GRETCHEN (2.75 x 33 Xience Marti; post-dilated with 3.5 NC). Procedure -- Nature Photographer Wiley Pichardo MD Stuntman Werner Estimated Blood Loss 10 Findings Consistent with Post-Op Diagnosis
[2019-07-15] MEDS ORDERED: NITROGLYCERIN 2% OINTMENT 30GM TUBE EXT ONE (13:11)
[2019-07-15] MEDS ORDERED: NITROGLYCERIN 2% OINTMENT 30GM TUBE ONE (13:16)
[2019-07-15] MEDS: ACETAMINOPHEN 325 MG TAB PO PRN (13:21)
[2019-07-15] MEDS ORDERED: AMLODIPINE BESYLATE 5 MG TAB PO ONE (13:30)
[2019-07-15] MEDS ORDERED: HydrALAZINE HCL 20 MG/ML VIAL IV ONE (14:48)
[2019-07-15] MEDS ORDERED: HydrALAZINE HCL 20 MG/ML VIAL ONE (14:49)
[2019-07-15] MEDS ORDERED: MoRPHine SULFATE 2 MG/ML CARP IV STA (15:01)
[2019-07-15] MEDS ORDERED: MoRPHine SULFATE 2 MG/ML CARP ONE (15:02)
--- NOTE | 2019-07-15 16:05 | Cardiology Progress Note ---
Date of Service July 15, 2019 Subjective Asked to see patient with using her right groin and wrist site Pressure being held at right wrist site. Small amount of superficial blood under dressing at right groin no hematoma or drainage Patient significantly hypertensive and anxious. No respiratory distress. EKG for chest pressure complaints demonstrated no acute ST segment changes Hydralazine 5 mg IV and morphine 2 mg IV given for the relief of pain in groin and wrist sites blood pressure initially improved Will be treated as well will follow closely no signs of acute deterioration of bleeding or ischemia of blood pressure and chronic hypertension remain issues Slow mobilization as per routine post-cath orders Physical Exam Cardiovascular: Vessels: femoral pulses present (No significant hematoma) and radial pulses present Results & Data Vital Signs (Past 12 Hours) Vital Signs Temp Pulse Resp BP BP Pulse Ox 07/15/19 15:39 66 22 135/71 98 07/15/19 15:30 162/77 H 07/15/19 15:25 36.3 C L 07/15/19 15:16 66 22 138/78 98 07/15/19 15:07 69 22 167/95 H 97 07/15/19 14:15 73 19 195/94 H 97 07/15/19 13:58 70 22 194/85 H 07/15/19 13:35 70 23 181/83 H 97 07/15/19 13:27 62 30 H 176/80 H 96 07/15/19 13:15 69 21 179/88 H 96 07/15/19 12:55 74 22 190/81 H 99 07/15/19 12:28 64 21 98 07/15/19 12:22 69 19 177/83 H 95 07/15/19 11:33 36.4 C L 65 16 185/87 H 95 07/15/19 11:00 64 18 170/80 H 95 07/15/19 10:55 73 18 174/74 H 95 07/15/19 10:50 73 18 145/78 H 95 07/15/19 10:45 73 18 185/69 H 95 07/15/19 07:07 36.5 C 77 20 174/98 H 98
[2019-07-15] MEDS ORDERED: LORazepam 0.5 MG TAB PO STA (16:08)
[2019-07-15] MEDS ORDERED: LIDOCAINE/EPINEPHRINE 1% 20 ML VIAL INFIL ONE (16:31)
--- NOTE | 2019-07-15 16:40 | Cardiac Catheterization ---
[facility] Data: City Supervisor Cardiac Status Clinical evaluation leading to the procedure CAD Presenation: Unstable angina Anginal Classification: CCS III Heart Failure: No Cardiogenic Shock within 24 Hours: No Cardiac Arrest within 24 Hours: No Imaging Studies Past 6 Months: Yes Stress Studies Past 6 Months: No Diagnostic Physicians Name: Wiley Pichardo MD Status: Elective Closure Device Percutaneous Entry Location: Femoral Closure Device: Angio-Seal Recommendations: PCI without planned CABG PCI Indication: Angina despite med therapy Lesion Segment Name: Mid RCA Culprit Artery: Yes Stenosis Prior to Rx (%): 75 Chronic Total Occlusion: No IVUS: No FFR: No Pre-Procedure SUNITA Flow: 3 Previously Treated Lesion: No Lesion Complexity: Non-High/Non-C Lesion Length (mm): 25 Thrombus Present: No Bifurcation Lesion: No Guidewire Across Lesion: Stenosis Post-Procedure (%): 0 Post-Procedure SUNITA Flow: 3 Devices(s) Deployed: Yes Yes Intraprocedure Events Significant Disection: No Perforation: No Cardiac Cath Procedure Full Procedure Date July 15, 2019 Pre-Procedure Diagnosis Pre-Procedure Diagnosis: Angina and Cardiothoracic Symptom AUC Score AUC Score: 8 Post-Procedure Diagnosis Post-Procedure Diagnosis: Successful PCI Procedure(s) Performed Procedure(s) Performed: Left Heart Cath and Drug Eluting Stent Software Controls Engineer Wiley Pichardo MD Power Generation Engineer(s) Dinesh Caldera Estimated Blood Loss Estimated Blood Loss: <25 Medication(s) Medication(s): Clopidogrel, Fentanyl (12.5 mcg IVx3), Heparin (4000 units IV), Nicardipine (250 mcg intra-arterial x 4 after arterial sheath insertion and during procedure), Nitroglycerin (200 mcg intrarterial x 2) and Versed (1 mg IV x 2) Summary of Findings Indication: Refractory angina Access: 6 Fr right common femoral artery Catheters: JR4 guide, guideliner Findings: For full details of patient's coronary angiography please cath report dictated by Dr. Fuentes. Briefly, patient found to have severe seen vessel disease involving her mid RCA. Decision to proceed with PCI. -- PCI -- Antithrombotic therapy: Heparin, clopidogrel Procedure: RCA cannulated with JR4 guide Police Magistrate 50 wire passed across lesion into distal vessel Mid RCA lesion predilated with 2.0 and 2.5 compliant balloons With the aid of a guideliner dilated lesion stented with 2.75 x 33 mm Xience Marti drug-eluting stent Stent post-dilated with three-point noncompliant balloon IC vasodilators administered for spasm Post procedure SUNITA 3 flow, stent well expanded with minimal residual stenosis and no apparent cardiac complications. Arterial Closure: Angio-Seal, TR band Summary: 1. Successful PCI of mid RCA with single drug-eluting stent (2.75 x 33 mm Xience Marti; postdilated with 3.0 NC) Recommendations: To PCU for continued monitoring Loaded with clopidogrel 600 mg in cath Continue dual-antiplatelet therapy for at least 6 months Continue statin, and ASCVD risk factor modification Consult cardiac Rehab Hemodynamics Rest Ao:: 171/77/130 Final Ao: 189/78/123 LV: -- Recommendations Recommendations: PCI without planned CABG Specimens Specimens: None Radiation Exposure (mGy) 1805 Contrast (mls) 177 Fluids (cc crystalloids) Fluids (cc crystalloids): 190 Drains Drains: None Anesthesia Moderate Procedural Complication(s) None Disposition PCU I attest to the content of the Intraoperative Record and any orders documented therein. Any exceptions are noted below. [facility] Card Cath Procedure Codes Moderate Sedation Procedure 1: Sedation/Anesthesia: 10194 Mod Sedation by the same physician;Init15 Min Child Age 5 & Up Procedure 2: Sedation/Anesthesia: 21940 Mod Sedation by the same physician; Ea [id number] Minutes Stenting Procedure 1: Cardiovascular Stent Procedures: 92907 Perc transcatheter placement of intracoronary stent(s), with ang PG Care Time/CCT Total # of Minutes Spent Total Time Spent with Patient: Total time spent is greater than 50% in coordination of care (as documented) at patient's floor/unit and/or counseling patient:
[2019-07-15] MEDS ORDERED: LORazepam 0.5 MG TAB PO SCH (21:00)
[2019-07-16] MEDS: ACETAMINOPHEN 325 MG TAB PO PRN (04:14)
[2019-07-16 06:22] LABS: Basophils # (auto) 0.02 K/uL (0-0.2); Basophils % (auto) 0.2 %; Eosinophils % (auto) 1.1 %; Hematocrit (blood only) 35.5 % (37-47); Hemoglobin 11.1 g/dL (12.0-16.0); Immature Granulocytes # (auto) 0.04 K/uL (0.00-0.02); Immature Granulocytes % (auto) 0.4 %; Lymphocytes % (auto) 10.6 %; Mean Corpuscular Hemoglobin 31.6 pg (25-34); Mean Corpuscular Hgb Conc 31.3 g/dL (32-36); Mean Corpuscular Volume 101.1 fL (80-100); Mean Platelet Volume 10.4 fL (7.4-10.4); Monocytes # (auto) 1.07 K/uL (0.11-0.59); Monocytes % (auto) 11.4 %; Neutrophils # (auto) 7.18 K/uL (1.4-6.5); Neutrophils % (auto) 76.3 %; Platelet Count 217 K/uL (130-400); RDW Coefficient of Variation 14.8 % (11.5-14.5); RDW Standard Deviation 54.7 fL (36.4-46.3); Red Blood Count 3.51 M/uL (4.2-5.4); White Blood Count 9.41 K/uL (4.8-10.8)
[2019-07-16 06:52] LABS: BUN Creatinine Ratio 33.4 (10-20); Calcium 8.6 mg/dl (8.5-10.1); Creatinine Clr Calc Pharmacy 51.5 ml/min; Est GFR (African American) 96.2
[2019-07-16] MEDS ORDERED: ASPIRIN 81 MG ECTAB PO SCH (09:00)
[2019-07-16] MEDS ORDERED: CEROVITE ADV FORMULA TAB PO SCH (09:00)
[2019-07-16] MEDS ORDERED: NEBIVOLOL HCL 5 MG TAB PO SCH (09:00)
[2019-07-16] MEDS ORDERED: SPIRONOLACTONE 25 MG TAB PO SCH (09:00)
[2019-07-16] MEDS ORDERED: CLOPIDOGREL BISULFATE 75 MG TAB PO SCH (09:00)
[2019-07-16] MEDS ORDERED: ATORVASTATIN 40 MG TAB PO SCH (09:00)
--- NOTE | 2019-07-16 10:43 | Cardiology Progress Note ---
Date of Service July 16, 2019 Assessment & Plan (1) Status post insertion of drug-eluting stent into right coronary artery for coronary artery disease: Diagnostic cardiac catheterization demonstrated diffuse coronary atherosclerosis with high-grade obstruction of the mid right coronary artery. Patient underwent successful drug-eluting stent to the mid vessel Access site's included right radial and right femoral due to marked tortuosity right subclavian, inability access full cath via wrist Patient doing well this morning We will optimize medical regimen Scheduled appoint with myself in approximately 3 weeks (2) Hypertensive heart disease with chronic diastolic congestive heart failure: (3) Hyperlipidemia: Subjective Patient seen and examined, chart, medications, telemetry reviewed. Improved this morning right wrist and groin sites healing well without bleeding Blood pressure essentially at baseline Ambulatory in room without difficulty no chest pains or discomfort Physical Exam Constitutional: WD/WN, vitals as above no acute distress Eyes: PERRL, conjunctivae normal, anicteric sclerae ENMT: external ear and nose normal, oropharynx normal Respiratory: normal respiratory effort, lungs clear to auscultation Cardiovascular: Rate/Rhythm: regular rate and regular rhythm Heart Sounds: normal S1 and normal S2 Right radial access site without hematoma Right femoral access site minimal superficial ecchymoses no hematoma no bruit Gastrointestinal (Abdomen): normal bowel sounds, soft, nontender, no hepatosplenomegaly Results & Data Vital Signs (Past 12 Hours) Vital Signs Temp Pulse Pulse Resp BP Pulse Ox 07/16/19 09:05 152/69 H 07/16/19 08:00 67 07/16/19 07:13 36.6 C 74 18 171/76 H 96 07/16/19 04:05 36.9 C 76 20 178/85 H 96 07/16/19 00:09 36.9 C 79 20 145/80 H 95 07/15/19 23:33 71 Laboratory Results Laboratory Results - last 24 hr 07/16/19 07/16/19 05:54 05:54 WBC 9.41 RBC 3.51 L Hgb 11.1 L Hct 35.5 L MCV 101.1 H MCH 31.6 MCHC 31.3 L RDW Std Deviation 54.7 H RDW Coeff of Breonna 14.8 H Plt Count 217 MPV 10.4 Immature Gran % (Auto) 0.4 Neut % (Auto) 76.3 Lymph % (Auto) 10.6 [place] % (Auto) 11.4 Eos % (Auto) 1.1 Baso % (Auto) 0.2 Immature Gran # (Auto) 0.04 H Neut # (Auto) 7.18 H Lymph # (Auto) 1.00 L [place] # (Auto) 1.07 H Eos # (Auto) 0.10 Baso # (Auto) 0.02 Sodium 137 Potassium 4.0 Chloride 107 Carbon Dioxide 27 Anion Gap 3.0 BUN 22 H Creatinine 0.67 Est Cr Clr Drug Dosing 51.5 Est GFR ( Amer) 96.2 Est GFR (Non-Af Amer) 83.0 BUN/Creatinine Ratio 33.4 H Glucose 89 Calcium 8.6
--- NOTE | 2019-07-16 10:46 | Discharge Summary ---
Date of Service July 16, 2019 Admission HPI Per Admitting Provider Patient is an 78-year-old female with longstanding history of hypertension and hypertensive heart disease prior documented apical hypokinesis on echocardiogram. Patient had recent difficulties with acute hypertension induced congestive heart failure possible ischemic origin. Echocardiogram demonstrated newly worsening inferoseptal wall motion abnormalities She was referred for diagnostic cardiac catheterization For further details refer to full admission H&P Admission Exam (Per Admitting) Constitutional WD/WN, vitals as above no acute distress Eyes PERRL, conjunctivae normal, anicteric sclerae ENMT external ear and nose normal, oropharynx normal Mallampati Class: III Respiratory normal respiratory effort, lungs clear to auscultation Auscultation: + diminished lung sounds Cardiovascular Rate/Rhythm: regular rate and regular rhythm Heart Sounds: normal S1 and normal S2 Vessels: femoral pulses present (No significant hematoma) and radial pulses present Gastrointestinal (Abdomen) normal bowel sounds, soft, nontender, no hepatosplenomegaly Specialty Data Cardiology Cardiac catheterization 07/15/2019 Right dominant coronary anatomy Diffuse coronary atherosclerosis all vasculature with vessel tortuosity and mild ectasia Left main: Mildly calcified without obstruction Left anterior descending: Type III in distribution modest in caliber. It gives rise to a large diagonal and large septal branch at the end of its proximal third. Within the left anterior descending there is diffuse atherosclerotic changes and proximal calcification with a long area of narrowing in its proximal segment most severe 40% stenosis. Left circumflex: Moderately large but nondominant. It gives rise to a small first marginal or large second marginal then a bifurcating third marginal before continuing along the AV groove is a thin vessel. There are diffuse moderate irregularities. The origin of the second marginal branch is narrowed by 60 to 70%. Right coronary artery: Very large dominant vessel giving rise to a sinoatrial branch at its origin a right ventricular branch in its midportion, a very large marginal branch along the AV groove along posterior descending artery and then to posterior ventricular branch is a small caliber. There is moderate irregularities within the right coronary artery with a discrete 70% stenosis in its midportion LV angiography: Not performed LVEDP 12 Recommendations Recommendations: PCI without planned CABG Coronary intervention 07/15/2019 Antithrombotic therapy: Heparin, clopidogrel Procedure: RCA cannulated with JR4 guide Silk Screen Printer Machine 50 wire passed across lesion into distal vessel Mid RCA lesion predilated with 2.0 and 2.5 compliant balloons With the aid of a guideliner dilated lesion stented with 2.75 x 33 mm Xience Marti drug-eluting stent Stent post-dilated with three-point noncompliant balloon IC vasodilators administered for spasm Post procedure SUNITA 3 flow, stent well expanded with minimal residual stenosis and no apparent cardiac complications. Arterial Closure: Angio-Seal, TR band Summary: 1. Successful PCI of mid RCA with single drug-eluting stent (2.75 x 33 mm Xience Marti; postdilated with 3.0 NC) Discharge Data Consultations 07/15/19 10:45 Consult Cardiac Rehabilitation Routine Procedures Performed Operation Date: 07/15/19 08:00 Actual Procedures p Cath, Left with Cors and Vent - Jordan Galaviz MD s Drug Eluting Stent SGl Vessel - Arturo Pichardo MD s Cineradiography w/Routine Exam - Arturo Pichardo MD Hospital Course (1) Status post insertion of drug-eluting stent into right coronary artery for coronary artery disease: Diagnostic cardiac catheterization demonstrated diffuse coronary atherosclerosis with high-grade obstruction of the mid right coronary artery. Patient underwent successful drug-eluting stent to the mid vessel Access site's included right radial and right femoral due to marked tortuosity right subclavian, inability access full cath via wrist Patient underwent successful core intervention as noted. Postoperatively patient had oozing and bleeding from right groin site that was treated locally epinephrine and lidocaine injection. Blood pressures were transiently elevated but responded to medical therapy support Post procedure patient was ambulatory in room blood pressures controlled and patient feeling well Medication adjustments were made specifically, dual antiplatelet therapy initiated with aspirin and clopidogrel. Amlodipine increased to 5 mg p.o. daily, atorvastatin increased to 20 mg p.o. daily Scheduled arrangement and follow-up with Dr. Jordan Galaviz made for 08/10/2019 (2) Hypertensive heart disease with chronic diastolic congestive heart failure: (3) Hyperlipidemia:
== END 2019-07-16 12:22 | disposition home or self-care (01) ==
LOC: 2E 06:43 → CC 06:43

== ENCOUNTER 2025-05-08 19:15 | Observation (INO) ==
--- NOTE | 2025-05-08 19:21 | Emergency Department Note ---
Impression & Plan Fall, Closed fracture of head of right humerus, Anterior dislocation of right shoulder, Right forearm pain, Pain of right lower leg, Abrasion of right elbow ED Provider Note CHIEF COMPLAINT: Fall HISTORY OF PRESENTING ILLNESS: This 84-year-old female patient presents to the emergency department via EMS from [facility] for evaluation of a ground-level fall. The patient states that she was trying to get something out of her top dresser drawer and then she fell onto the ground. Per EMS, the patient was laying weird on her right arm and shoulder. She is having pain to the right shoulder, right forearm, and right lower leg. The patient hit her head. She denies LOC. She is on Eliquis. She is also having mild pain in her neck. She denies any other back pain. She denies chest pain or shortness of breath. She denies abdominal pain, nausea, or vomiting. She has an abrasion to the right elbow. She does not believe her tetanus shot is up-to-date and there is no tetanus listed in her vaccine records in our system. REVIEW OF SYSTEMS: See HPI for pertinent positives and pertinent negatives. ALLERGIES: Keflex, lactose MEDICATIONS: See below PAST MEDICAL HISTORY: See below PHYSICAL EXAM: PRIMARY SURVEY Airway: Intact and patent. Breathing: Trachea midline. Symmetrical chest movement. Breath sounds equal bilaterally. No respiratory distress. Circulation: Skin warm, capillary refill <2 seconds. Disability: PERRLA. Able to move all extremities. SECONDARY SURVEY VITALS: Vitals are noted on the nurse's note and reviewed by myself. GENERAL: No acute distress, non-diaphoretic. SKIN: The patient has a superficial abrasion to the right elbow. It is clean without bleeding or foreign bodies. No lacerations requiring repair. Capillary reflex less than 2 seconds. HEAD: Normocephalic. No scalp tenderness or step-offs felt. EARS: Bilateral external auditory canals clear without tragus tenderness. Bilateral tympanic membranes pearly kaiser without erythema or effusion. No mastoid tenderness bilaterally. No hemotympanum. No timmons sign. EYES: Pupils equal round and reactive to light and accommodation. Conjunctivae without injection, sclerae without icterus. Extraocular movements intact. No nystagmus. NOSE: Patent without discharge. No sinus tenderness. No septal hematoma or bleeding. FACE: No facial bone tenderness. Full range of motion of the jaw without tenderness. MOUTH: Mucous membranes moist. Pharynx without erythema or exudate. Uvula midline. Airway patent. Tongue does not deviate. NECK: The patient is mildly tender to palpation along the paraspinal muscles of the neck, but no central cervical spine tenderness. HEART: Regular rate and rhythm without murmurs gallops or rubs. LUNGS: Clear to auscultation bilaterally without wheezes, rales or rhonchi. No retractions or accessory muscle use. CHEST: No chest wall tenderness. ABDOMEN: Positive bowel sounds x 4. Normal tympanic percussion. Soft, nontender, without masses or organomegaly. No guarding or rebound tenderness. MUSCULOSKELETAL: No tenderness of the thoracic spine or paraspinal muscles. Minimal tenderness to palpation over the lower lumbar spine, but no paraspinal muscle tenderness. No tenderness with pelvic rocking. The patient is maximally tender to palpation over the right shoulder and right humerus. She is unable to move the right humerus or shoulder due to significant pain. No obvious sulcus sign, but even with passive range of motion I am having difficulty moving the shoulder. The patient is also tender to palpation of the right forearm, but no tenderness of the right elbow, wrist, or hand. She is also tender to palpation over the anterior aspect of the right tib-fib. No tenderness of the right hip, femur, knee, ankle, or foot. Full range of motion without tenderness to palpation in all remaining extremities. Peripheral pulses 2+. NEURO: Patient was alert and oriented to person place and time. Normal mental status exam. Normal sensation to light and sharp touch. No focal neurological deficits. DIFFERENTIAL DIAGNOSIS: Differential diagnosis includes concussion, contusion, fracture, subluxation, dislocation, subdural hematoma, epidural hematoma, intraparenchymal hemorrhage, contusion, ligamentous injury, neurovascular, compartment syndrome, rhabdomyolysis, intra-abdominal injury, splenic rupture, hepatic rupture, rib fractures, cardiac contusion, pneumothorax, hemothorax, cardiac tamponade, intrathoracic injury, neurologic, as well as other pathologies. ED COURSE AND MEDICAL DECISION MAKING: HISTORY FROM INDEPENDENT HISTORIAN: Additional history obtained from EMS. MEDICATIONS GIVEN: Tetanus booster. 250 mL normal saline solution bolus. Tylenol 1000 mg IV. Fentanyl 50 mcg IV, fentanyl 25 mcg IV x 2, Zofran 4 mg IV. MONITOR: Continuous patient monitor: Order was placed for continuous patient monitor. Patient was placed on the patient monitor and continuous pulse ox. Patient was noted to be in normal sinus rhythm at an initial rate of 80 bpm per my interpretation. EKG: EKG was interpreted by myself as normal sinus rhythm at 78 bpm with no acute ST or T wave changes. INTERPRETATION OF LABS: I interpreted the labs with full lab results as below in the lab section of this note. Laboratory results pertinent to the emergent complaint are discussed in the MDM section below. The patient was advised to follow up with their PCP and/or specialist(s) for further outpatient monitoring and management of any abnormal results. INTERPRETATION OF IMAGING: Imaging studies were interpreted by myself and read by radiology as per the imaging section of this note. The patient was advised to follow up with their PCP and/or specialist(s) for further outpatient management of any non-emergent abnormal findings. Chest x-ray negative for acute cardiopulmonary etiology or rib fractures. The acute right humeral head fracture is noted. X-rays of the right humerus show an acute comminuted and impacted fracture of the right humeral head and neck. Suspected anterior dislocation and displacement of the fractured humeral head relative to the glenoid. X-rays of the right forearm negative for acute fracture or dislocation. CT scan of the head without contrast was negative for acute intracranial abnormality. Nonspecific white matter changes most commonly seen with small vessel disease. CT scan of the cervical spine was negative for acute fracture or subluxation. There is multilevel degenerative changes. CT scan of the lumbar spine without contrast was negative for acute fracture or subluxation. Severe scoliosis with postoperative and degenerative changes noted. CONSULTATIONS: Romel Berman PA-C of orthopedics. On-call hospitalist. SPLINTING: Definitive fracture care was performed by myself. The patient was placed in a sling under my direction. Neurovascular status was rechecked and intact. MDM SUMMARY: I examined the patient as soon as she was brought in by EMS. The patient had a ground-level fall hitting her head and injuring the right arm and lower leg. The patient is on Eliquis. The patient is complaining of pain to the right shoulder, right forearm, right lower leg, and mildly to her neck and lower back. The patient refused to wear a stiff cervical collar. The patient understands the risks of not wearing a stiff cervical collar if a cervical spine fracture or subluxation is present. The patient is of sound mind and able to make her own medical decision and she continues to refuse to wear the stiff cervical collar. The patient has a superficial abrasion to the right elbow. It appears that her tetanus shot is not up-to-date and she was given a tetanus booster. An IV lock was placed and labs were drawn. The patient was medicated as above for her pain and given gentle IV hydration. White blood cell count normal at 8.24. Hemoglobin low at 9.1. Platelet count normal at 264. Coags were normal. Creatinine elevated 2.10 and BUN elevated at 49. Glucose 128 and alk phos 129, but CMP otherwise normal. Lipase elevated at 114. High-sensitivity troponin normal. The patient was unable to give a urine sample while in the ER. Chest x-ray negative for acute cardiopulmonary etiology or rib fractures. The acute right humeral head fracture is noted. X-rays of the right humerus show an acute comminuted and impacted fracture of the right humeral head and neck. Suspected anterior dislocation and displacement of the fractured humeral head relative to the glenoid. X-rays of the right forearm negative for acute fracture or dislocation. CT scan of the head without contrast was negative for acute intracranial abnormality. Nonspecific white matter changes most commonly seen with small vessel disease. CT scan of the cervical spine was negative for acute fracture or subluxation. There is multilevel degenerative changes. CT scan of the lumbar spine without contrast was negative for acute fracture or subluxation. Severe scoliosis with postoperative and degenerative changes noted. After the results of the CT scans were obtained, the patient had a repeat cervical spine exam. The patient did feel better after the IV pain medications. She no longer had cervical spine or paraspinal muscle tenderness. Therefore, the patient cervical spine was cleared at 2230 on 05/08/2025. I spoke with Romel Berman PA-C of orthopedics in regards to the patient's fracture subluxation of the right humeral head. He recommended the patient be placed in a sling. The patient is on Eliquis and the patient's Eliquis will need to be held prior to surgical intervention. He stated that if the patient had appropriate care at home and had means of appropriate pain control, she could be discharged home and follow-up as an outpatient with orthopedics. However, if she was unable to perform her activities of daily living or control her pain as an outpatient, she could be admitted by medicine with orthopedic consult. The patient states that she has some help at the senior living, but would not have enough help to be able to perform her daily activities with the right shoulder fracture/dislocation. She also states that she does not feel that her pain could be well enough controlled at home. Therefore, the patient will need to be admitted by medicine. I had a meaningful discussion about this patient with Dr. Causey who agrees with my assessment and the treatment plan. I spoke with the on-call hospitalist who agreed to admit the patient for further evaluation and treatment. Please refer to their dictation for further details. The patient's care was admitted in stable condition. DIAGNOSIS: Fall on Eliquis Right humeral head/neck fracture and dislocation Right forearm pain Right lower leg pain Closed head injury Low back pain Right elbow abrasion Past Med/Surg History Problem List (Updated 05/09/25 @ 04:58 by Eleonora Downs PA-C) Abrasion of right elbow (Acute) Pain of right lower leg (Acute) Right forearm pain (Acute) Anterior dislocation of right shoulder (Acute) Closed fracture of head of right humerus (Acute) Fall (Acute) Wound of left buttock (Acute) Abscess of left buttock Esophageal dysphagia Encounter for pre-operative examination Hyperlipidemia Abdominal pain, lower Change in bowel habits Bladder dysfunction SOB (shortness of breath) Periumbilical pain Ankylosis of lumbar spine IBS (irritable bowel syndrome) Sacroiliitis Osteoporosis Essential hypertension Dysphagia reason for upcoming procedure COPD (chronic obstructive pulmonary disease) well controlled with inhalers Depression Anxiety Lumbar stenosis with neurogenic claudication Status post insertion of drug-eluting stent into right coronary artery for coronary artery disease 06/2019 at [facility] x1 stent. 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 [address] Galaviz. History of bilateral tubal ligation History of lumbar surgery S/P epidural steroid injection History of cholecystectomy History of esophagogastroduodenoscopy (EGD) History of colonoscopy History of cataract surgery bilateral History of tonsillectomy Hx of appendectomy H/O laminectomy History of bowel resection ~ Family History Father Myocardial infarction Mother Myocardial infarction Aunt Breast cancer Daughter Diabetes Other No family history of adverse response to anesthesia Social History Smoking Status: Former smoker Cigarettes Per Day: 2-3 daily; Second Hand Exposure: Yes (hx); Do You Dip or Chew Tobacco: Yes; Hx Alcohol Use: Yes Alcohol Intake Frequency: Monthly or Less Hx Substance Use: No Preferred Language: Slovenian Communication Ability: Effective Visual Impairment: Limited Hearing Ability: Normal Faculty Research Physician Required: No Beliefs That Will Affect Care: None marital status: / Current Living Situation: Alone Current Living Situation Comment: [facility] current occupational status: retired How many Children do You have: 2 Feels Safe at Home: Yes Diet: regular caffeine: Yes during the past year weight has: remained stable Assistive Devices: Cane, Glasses, Lift Chair, Oxygen - at Night and Wheelchair Allergies Allergies Allergy/AdvReac Type Severity Reaction Status Date / Time cephalexin [From Keflex] Allergy Intermediate Unsure Verified 04/27/25 10:09 lactose Allergy Intermediate GI Issues Verified 04/27/25 10:09 Home Meds Home Medications Medication Instructions Recorded Confirmed Oxygen Home 07/15/19 05/08/25 acetaminophen 500 mg tablet 1,000 mg PO DAILY PRN Fever Or Pain 09/28/22 05/08/25 (Tylenol Extra Strength) apixaban 2.5 mg tablet (Eliquis) 2.5 mg PO BID 09/28/22 05/08/25 atorvastatin 40 mg tablet 40 mg PO HS 09/28/22 05/08/25 ipratropium 0.5 mg-albuterol 3 mg 3 ml inhalation QID PRN 09/28/22 05/08/25 (2.5 mg base)/3 mL nebulization cough/wheezing soln metoprolol tartrate 25 mg tablet 12.5 mg PO BID 09/28/22 05/08/25 torsemide 20 mg tablet 20 mg PO DAILY 09/28/22 05/08/25 Saccharomyces boulardii 250 mg 250 mg PO DAILY 03/16/25 05/08/25 capsule budesonide 160 mcg-glycopyr 9 2 inh inhalation BID 03/16/25 05/08/25 mcg-formot 4.8 mcg/actuation HFA inhaler (Breztri Aerosphere) cholecalciferol (vitamin D3) 25 125 mcg PO DAILY 03/16/25 05/08/25 mcg (1,000 unit) capsule (Vitamin D3) cranberry 500 mg capsule 500 mg PO DAILY 03/16/25 05/08/25 estradiol 0.01% (0.1 mg/gram) 1 appful vaginal . AND Saturday03/16/25 05/08/25 vaginal cream lactase 3,000 unit tablet 3,000 unit PO TID 03/16/25 05/08/25 (Dairy-Aid) lidocaine 4 % topical patch 1 patch topical DAILY Pain 03/16/25 05/08/25 spironolactone 25 mg tablet 12.5 mg PO .MON,WED,Sat03/16/25 05/08/25 vitamins A,C,N-ofit-yjgdil 4,296 1 cap PO BID 03/16/25 05/08/25 mcg-226 mg-90 mg capsule (PreserVision AREDS) Gas Relief (simethicone) 1 - 2 cap PO UD PRN 03/26/25 05/08/25 bloating,pressure,fullness acetaminophen 500 mg tablet 1,000 mg PO AMHS 03/26/25 05/08/25 lorazepam 0.5 mg tablet 0.5 mg PO Q6 PRN Anxiety 03/26/25 05/08/25 quetiapine 25 mg tablet (Seroquel) 12.5 mg PO BID 04/27/25 05/08/25 cyanocobalamin (vitamin B-12) 1,000 mcg PO DAILY 05/08/25 05/08/25 1,000 mcg tablet (Vitamin B-12) dextrin 3 gram/4 gram oral powder 2 tsp PO TID 05/08/25 05/08/25 (Clear Fiber) nitrofurantoin 100 mg PO BID 05/08/25 05/08/25 monohydrate/macrocrystals 100 mg capsule sertraline 25 mg tablet 25 mg PO DAILY 05/08/25 05/08/25 sertraline 50 mg tablet 50 mg PO DAILY 05/08/25 05/08/25 tramadol 50 mg tablet 50 mg PO Q6H PRN Pain 05/08/25 05/08/25 Results & Data (ED) Vital Signs Vital Signs - 24 hr 05/08/25 19:25 05/08/25 19:25 05/08/25 19:28 Temperature 36.8 C 36.8 C Temperature Source Oral Oral Pulse Rate 79 73 Pulse Rate [Apical] 79 Respiratory Rate 20 20 Blood Pressure 166/74 H Blood Pressure [Left Arm] 166/74 H Blood Pressure Mean 104 Blood Pressure Mean [Left Arm] 104 Pulse Oximetry 99 100 Oxygen Delivery Method Nasal Cannula Nasal Cannula Oxygen Flow Rate 2 2 Sepsis Recent Fever Within 48 Hours No Sepsis New/Unexplained Change in Mental Status No Sepsis Action Taken by Nursing No Action Required 05/08/25 19:30 05/08/25 20:00 05/08/25 21:00 Temperature Temperature Source Pulse Rate Pulse Rate [Apical] 80 79 Respiratory Rate 18 20 Blood Pressure Blood Pressure [Left Arm] 164/89 H Blood Pressure Mean Blood Pressure Mean [Left Arm] 114 Pulse Oximetry 100 100 Oxygen Delivery Method Room Air Nasal Cannula Nasal Cannula Oxygen Flow Rate Sepsis Recent Fever Within 48 Hours Sepsis New/Unexplained Change in Mental Status Sepsis Action Taken by Nursing 05/08/25 22:00 05/08/25 22:44 05/08/25 23:00 Temperature Temperature Source Pulse Rate Pulse Rate [Apical] 83 80 78 Respiratory Rate 16 16 14 Blood Pressure Blood Pressure [Left Arm] 143/76 H 130/70 Blood Pressure Mean Blood Pressure Mean [Left Arm] 98 90 Pulse Oximetry 100 98 99 Oxygen Delivery Method Nasal Cannula Room Air Oxygen Flow Rate 2 Sepsis Recent Fever Within 48 Hours Sepsis New/Unexplained Change in Mental Status Sepsis Action Taken by Nursing 05/08/25 23:28 05/09/25 00:00 05/09/25 01:00 Temperature Temperature Source Pulse Rate 80 Pulse Rate [Apical] 82 74 Respiratory Rate 14 18 Blood Pressure Blood Pressure [Left Arm] 151/101 H 153/79 H Blood Pressure Mean Blood Pressure Mean [Left Arm] 117 103 Pulse Oximetry 98 99 Oxygen Delivery Method Nasal Cannula Nasal Cannula Oxygen Flow Rate 3 3 Sepsis Recent Fever Within 48 Hours Sepsis New/Unexplained Change in Mental Status Sepsis Action Taken by Nursing Laboratory Data 05/08/25 19:49 05/08/25 19:49 Lab Results 05/08/25 05/09/25 Range/Units 19:49 00:30 WBC 8.24 (4.8-10.8) K/ul RBC 2.82 L (4.20-5.40) M/uL Hgb 9.1 L (12.0-16.0) g/dl Hct 28.0 L (37.0-47.0) % MCV 99.3 (80.0-100.0) fL MCH 32.3 (25.0-34.0) pg MCHC 32.5 (32.0-36.0) g/dL RDW Std Deviation 57.2 H (36.4-46.3) fL RDW Coeff of Breonna 15.7 H (11.5-14.5) % Plt Count 264 (130-400) K/uL MPV 10.1 (9.4-12.4) fL Immature Gran % (Auto) 1.1 % Neut % (Auto) 72.5 % Lymph % (Auto) 9.1 % [place] % (Auto) 13.1 % Eos % (Auto) 3.6 % Baso % (Auto) 0.6 % Neut # (Auto) 5.97 (1.40-6.50) K/uL Lymph # (Auto) 0.75 L (1.20-3.40) K/uL [place] # (Auto) 1.08 H (0.11-0.59) K/uL Eos # (Auto) 0.30 (0.00-0.50) K/uL Baso # (Auto) 0.05 (0.00-0.20) K/uL Immature Gran # (Auto) 0.09 (0.01-0.20) K/uL PT 10.5 (9.0-12.0) Seconds INR 1.0 (0.9-1.1) APTT 26 (21-31) Seconds PTT Ratio 1.0 Sodium 136 (136-145) mmol/L Potassium 4.3 (3.5-5.1) mmol/L Chloride 99 (98-107) mmol/L Carbon Dioxide 28 (21-32) mmol/L Anion Gap 9 (3-11) BUN 49 H (6-23) mg/dl Creatinine 2.10 H (0.6-1.2) mg/dl Est Cr Clr Drug Dosing 15.2 ml/min eGFR 22.52 BUN/Creatinine Ratio 23.3 H (10-20) Glucose 128 H (70-99(Fasting)) mg/dl Calcium 10.0 (8.6-10.3) mg/dl Total Bilirubin 0.4 (0.2-1.0) mg/dl AST 15 (13-39) U/L ALT 13 (7-52) U/L Alkaline Phosphatase 129 H (34-104) U/L Troponin I High Sens 7.9 (0-14) pg/ml Total Protein 6.2 (6.0-8.3) gm/dl Albumin 3.4 (3.4-5.0) gm/dl Globulin 2.8 (2.5-4.0) gm/dl Albumin/Globulin Ratio 1.2 (0.9-2) Lipase 114 H (11-82) U/L Urine Color Yellow Urine Appearance Clear (Clear) Urine pH 5.5 (4.5-7.5) Ur Specific [place] 1.015 (1.000-1.030) Urine Protein Negative (Negative) Urine Glucose (UA) Negative (Negative) Urine Ketones Negative (Negative) Urine Blood Negative (Negative) Urine Nitrite Negative (Negative) Urine Bilirubin Negative (Negative) Urine Urobilinogen Negative (Negative) Ur Leukocyte Esterase 2+ H (Negative) Urine WBC (Auto) 21-50 H (0-5) /hpf Urine RBC (Auto) 0-2 (0-2) /hpf U Hyaline Cast (Auto) 0-2 (0-2) /lpf U Epithel Cells (Auto) 6-10 H (0-2) /hpf Urine Bacteria (Auto) 1+ H (None Seen) Urine Comment Administered Medications Sodium Chloride (Nss) 1,000 mls @ 80 mls/hr IV .[id number] [facility] Stop: 05/10/25 02:44 Last Admin: 05/09/25 03:21 Dose: 80 mls/hr Documented By: LAF Discontinued Medications Diphtheria/Pertussis/Tetanus Vacc (Diphther/Tetan/Pertus Vaccine (Tdap, Adol/Adult) 0.5ml) 0.5 ml IM .ONCE ONE Stop: 05/08/25 19:29 Last Admin: 05/08/25 21:45 Dose: 0.5 ml Documented By: IDD Fentanyl Citrate (Fentanyl Citrate Pf 100 Mcg/2 Ml Vial) 50 mcg IV NOW STA Stop: 05/08/25 20:01 Last Admin: 05/08/25 20:06 Dose: 50 mcg Documented By: SVITLANA Fentanyl Citrate (Fentanyl Citrate Pf 100 Mcg/2 Ml Vial) 25 mcg IV NOW ONE Stop: 05/08/25 22:02 Last Admin: 05/08/25 22:43 Dose: 25 mcg Documented By: SVITLANA Fentanyl Citrate (Fentanyl Citrate Pf 100 Mcg/2 Ml Vial) 25 mcg IV NOW ONE Stop: 05/09/25 00:04 Last Admin: 05/09/25 00:26 Dose: 25 mcg Documented By: [email or web address] Sodium Chloride (Nss) 250 mls @ 999 mls/hr IV .Q16M ONE Stop: 05/08/25 19:43 Last Infusion: 05/08/25 20:08 Dose: Infused Documented By: Admin: 05/08/25 19:52 Dose: 999 mls/hr Documented By: SVITLANA Acetaminophen (Ofirmev) 1,000 mg in 100 mls @ 400 mls/hr IV NOW STA Stop: 05/08/25 19:42 Last Infusion: 05/08/25 20:07 Dose: Infused Documented By: Admin: 05/08/25 19:52 Dose: 400 mls/hr Documented By: SVITLANA Ondansetron HCl (Ondansetron Inj 2 Mg/Ml 2 Ml Vial) 4 mg IV NOW STA Stop: 05/08/25 20:01 Last Admin: 05/08/25 20:07 Dose: 4 mg Documented By: SVITLANA Imaging Data Radiologist's Impression: Cervical Spine CT 05/08/25 19:28 Exam(s): CT C SPINE EXAM: CT Cervical Spine Without Intravenous Contrast CLINICAL HISTORY: Trauma. TECHNIQUE: Axial computed tomography images of the cervical spine without intravenous contrast. CTDI is 25.38 mGy and DLP is 1738.39 mGy-cm. Automated exposure control was utilized for the study. A dose lowering technique was utilized adhering to the principles of ALARA. COMPARISON: No relevant prior studies available. FINDINGS: Vertebrae: No acute fracture. Maintenance of height of the vertebral bodies. No subluxation. Discs/spinal canal/neural foramina: Multilevel degenerative throughout the cervical spine. Soft tissues: Prevertebral soft tissues are unremarkable. IMPRESSION: No acute post-traumatic abnormality. Multilevel degenerative changes. Electronically signed by: Rikki Ruffin M.D. 05/08/25 22:05 PM Forearm X-Ray 05/08/25 19:28 Exam(s): XR RIGHT FOREARM, 2 views EXAM: XR Right Forearm, 2 Views CLINICAL HISTORY: Trauma. TECHNIQUE: Frontal and lateral views of the right forearm. COMPARISON: No relevant prior studies available. FINDINGS: Bones/joints: Unremarkable. No acute fracture. No dislocation. Soft tissues: Unremarkable. IMPRESSION: No acute post-traumatic abnormality. Electronically signed by: Rikki Ruffin M.D. 05/08/25 21:[address] 05/08/25 19:28 Exam(s): CT HEAD Without Contrast EXAM: CT Head Without Intravenous Contrast CLINICAL HISTORY: Trauma. TECHNIQUE: Axial computed tomography images of the head/brain without intravenous contrast. CTDI is 25.83 mGy and DLP is 1738.39 mGy-cm. Automated exposure control was utilized for the study. A dose lowering technique was utilized adhering to the principles of ALARA. COMPARISON: 03/11/2025 FINDINGS: Brain: Age-appropriate generalized atrophy. No acute stroke. Diffuse supratentorial periventricular and subcortical white matter changes. No acute hemorrhage or abnormal extra-axial fluid collection. Ventricles: No hydrocephalus. No midline shift. Bones/joints: Unremarkable. No acute fracture. Soft tissues: Unremarkable. Sinuses: Unremarkable as visualized. No acute sinusitis. IMPRESSION: No acute post-traumatic intracranial abnormality. Non-specific white matter changes, most commonly seen with small vessel disease. Electronically signed by: Rikki Ruffin M.D. 05/08/25 21:51 PM Humerus X-Ray 05/08/25 19:28 Exam(s): XR RIGHT HUMERUS, 2+ views EXAM: XR Right Humerus, 3 Views CLINICAL HISTORY: Trauma. TECHNIQUE: Frontal and lateral views of the right humerus. COMPARISON: No relevant prior studies available. FINDINGS: Bones/joints: Acute comminuted and impacted fracture of the right humeral head and neck. Suspected anterior dislocation and displacement of the fractured humeral head relative to the glenoid. Bones are osteopenic. Soft tissues: Soft tissue swelling surrounding the shoulder. IMPRESSION: Acute comminuted and impacted fracture of the right humeral head and neck. Suspected anterior dislocation and displacement of the fractured humeral head relative to the glenoid. Electronically signed by: Rikki Ruffin M.D. 05/08/25 21:[address] 05/08/25 19:28 Exam(s): CT L SPINE EXAM: CT Lumbar Spine Without Intravenous Contrast CLINICAL HISTORY: Trauma. TECHNIQUE: Axial computed tomography images of the lumbar spine without intravenous contrast. CTDI is 25.83 mGy and DLP is 1738.39 mGy-cm. Automated exposure control was utilized for the study. A dose lowering technique was utilized adhering to the principles of ALARA. COMPARISON: CT abdomen pelvis 03/18/2025. FINDINGS: Vertebrae: No acute fracture. Maintenance of height of the vertebral bodies. Severe S shaped scoliosis. Posterior laminectomy with bilateral facet bone fusion material from L4-L5. Bones are osteopenic. Discs/spinal canal/neural foramina: Diffuse degenerative changes greatest along the inner curvature of the scoliosis of the level of right T12-L1 vertebral body and along the inner curvature of the scoliosis from left aspect of the L3 through L5 vertebral bodies. Soft tissues: Atherosclerotic vascular calcifications. Bibasilar atelectasis. IMPRESSION: No acute post-traumatic abnormality. Severe scoliosis with postoperative and degenerative changes as described above. Electronically signed by: Rikki Ruffin M.D. 05/08/25 22:16 PM Tibia/Fibula X-Ray 05/08/25 19:28 Exam(s): XR RIGHT TIB/FIB, 2 views EXAM: XR Right Tibia and Fibula, 2 Views CLINICAL HISTORY: Trauma. TECHNIQUE: Frontal and lateral views of the right tibia and fibula. COMPARISON: No relevant prior studies available. FINDINGS: Bones/joints: Small posterior calcaneal bone spur. No acute fracture. No dislocation. Degenerative changes of the knee greatest in the lateral joint space. Soft tissues: Vascular calcifications. No radiopaque foreign body. IMPRESSION: No acute post-traumatic abnormality. Senescent changes. Electronically signed by: Rikki Ruffin M.D. 05/08/25 21:05 PM Chest X-Ray 05/08/25 19:29 Exam(s): XR CXR 1 VIEW EXAM: XR Chest, 1 View CLINICAL HISTORY: Reason for exam: Trauma. TECHNIQUE: Frontal view of the chest. COMPARISON: Prior chest x-ray from March 26, 2025. FINDINGS: Lungs: Unremarkable. No consolidation. Pleural space: Unremarkable. No pneumothorax. Heart: Mild cardiomegaly. Mediastinum: Tortuous and ectatic aorta. Normal mediastinal contour. Bones/joints: There is an acute right humeral head fracture. Advanced dextroscoliosis of the thoracolumbar junction. Diffuse osteopenia throughout the visualized bones. IMPRESSION: No evidence of acute thoracic injury. If there is continued clinical concern, recommend CT scan of the chest for further evaluation. Acute right humeral head fracture. Electronically signed by: Krysten Chao MD 05/08/25 21:55 PM Discharge Plan Visit Data Chief Complaint: Fall Stated Complaint: GLF, ON BLOOD THINNERS ED Provider: Jack Causey ED Midlevel Provider: Eleonora Downs Discharge Problem: Fall, Closed fracture of head of right humerus, Anterior dislocation of right shoulder, Right forearm pain, Pain of right lower leg, Abrasion of right elbow Patient Disposition: Admitted As Inpatient Condition: Fair Discharge Instructions Interventions: ED Discharge Assessment Last Done: 05/09/25 03:31 Discharge Problem: Fall Qualifiers: Encounter type: initial encounter Qualified Code(s): W19.XXXA - Unspecified fall, initial encounter Closed fracture of head of right humerus Qualifiers: Encounter type: initial encounter Qualified Code(s): S42.291A - Other displaced fracture of upper end of right humerus, initial encounter for closed fracture Anterior dislocation of right shoulder Qualifiers: Encounter type: initial encounter Qualified Code(s): S43.014A - Anterior dislocation of right humerus, initial encounter Abrasion of right elbow Qualifiers: Encounter type: initial encounter Qualified Code(s): S50.311A - Abrasion of right elbow, initial encounter
[2025-05-08] MEDS: ACETAMINOPHEN 1,000 MG/100 ML VIAL IV STA (19:52)
[2025-05-08] MEDS: SODIUM CHLORIDE 0.9% 250 ML IV ONE (19:52)
[2025-05-08 20:03] LABS: Hematocrit (blood only) 28.0 % (37.0-47.0); Hemoglobin 9.1 g/dl (12.0-16.0); Immature Granulocytes # (auto) 0.09 K/uL (0.01-0.20); Immature Granulocytes % (auto) 1.1 %; Mean Corpuscular Hemoglobin 32.3 pg (25.0-34.0); Mean Corpuscular Volume 99.3 fL (80.0-100.0); Platelet Count 264 K/uL (130-400); RDW Standard Deviation 57.2 fL (36.4-46.3); Red Blood Count 2.82 M/uL (4.20-5.40); White Blood Count 8.24 K/ul (4.8-10.8)
[2025-05-08] MEDS: ONDANSETRON INJ 2 MG/ML 2 ML VIAL IV STA (20:07)
[2025-05-08 20:24] LABS: Alanine Aminotransferase 13.0 U/L (7-52); Albumin Globulin Ratio 1.2 (0.9-2); Albumin Level 3.4 gm/dl (3.4-5.0); Alkaline Phosphatase 129.0 U/L (34-104); Anion Gap 9.0 (3-11); Bilirubin,Total 0.4 mg/dl (0.2-1.0); Blood Urea Nitrogen 49.0 mg/dl (6-23); Calcium 10.0 mg/dl (8.6-10.3); Carbon Dioxide 28.0 mmol/L (21-32); Chloride 99.0 mmol/L (98-107); Creatinine Clr Calc Pharmacy 15.2 ml/min; Globulin 2.8 gm/dl (2.5-4.0); Glucose 128.0 mg/dl (70-99(Fasting)); Lipase 114.0 U/L (11-82); Potassium 4.3 mmol/L (3.5-5.1); Sodium 136.0 mmol/L (136-145); Total Protein 6.2 gm/dl (6.0-8.3)
[2025-05-08 20:32] LABS: INR 1.0 (0.9-1.1); Partial Thromboplastin Time 26 Seconds (21-31); Prothrombin Time 10.5 Seconds (9.0-12.0)
--- NOTE | 2025-05-08 21:06 | XRay Report ---
Exam(s): XR RIGHT TIB/FIB, 2 views EXAM: XR Right Tibia and Fibula, 2 Views CLINICAL HISTORY: Trauma. TECHNIQUE: Frontal and lateral views of the right tibia and fibula. COMPARISON: No relevant prior studies available. FINDINGS: Bones/joints: Small posterior calcaneal bone spur. No acute fracture. No dislocation. Degenerative changes of the knee greatest in the lateral joint space. Soft tissues: Vascular calcifications. No radiopaque foreign body. IMPRESSION: No acute post-traumatic abnormality. Senescent changes. Electronically signed by: Rikki Ruffin M.D. 05/08/25 21:05 PM
--- NOTE | 2025-05-08 21:09 | XRay Report ---
Exam(s): XR RIGHT FOREARM, 2 views EXAM: XR Right Forearm, 2 Views CLINICAL HISTORY: Trauma. TECHNIQUE: Frontal and lateral views of the right forearm. COMPARISON: No relevant prior studies available. FINDINGS: Bones/joints: Unremarkable. No acute fracture. No dislocation. Soft tissues: Unremarkable. IMPRESSION: No acute post-traumatic abnormality. Electronically signed by: Rikki Ruffin M.D. 05/08/25 21:09 PM
--- NOTE | 2025-05-08 21:11 | XRay Report ---
Exam(s): XR RIGHT HUMERUS, 2+ views EXAM: XR Right Humerus, 3 Views CLINICAL HISTORY: Trauma. TECHNIQUE: Frontal and lateral views of the right humerus. COMPARISON: No relevant prior studies available. FINDINGS: Bones/joints: Acute comminuted and impacted fracture of the right humeral head and neck. Suspected anterior dislocation and displacement of the fractured humeral head relative to the glenoid. Bones are osteopenic. Soft tissues: Soft tissue swelling surrounding the shoulder. IMPRESSION: Acute comminuted and impacted fracture of the right humeral head and neck. Suspected anterior dislocation and displacement of the fractured humeral head relative to the glenoid. Electronically signed by: Rikki Ruffin M.D. 05/08/25 21:10 PM
[2025-05-08] MEDS: DIPHTHER/TETAN/PERTUS Vaccine (Tdap, Adol/Adult) 0.5mL IM ONE (21:45)
--- NOTE | 2025-05-08 21:52 | CT Scan Report ---
Exam(s): CT HEAD Without Contrast EXAM: CT Head Without Intravenous Contrast CLINICAL HISTORY: Trauma. TECHNIQUE: Axial computed tomography images of the head/brain without intravenous contrast. CTDI is 25.83 mGy and DLP is 1738.39 mGy-cm. Automated exposure control was utilized for the study. A dose lowering technique was utilized adhering to the principles of ALARA. COMPARISON: 03/11/2025 FINDINGS: Brain: Age-appropriate generalized atrophy. No acute stroke. Diffuse supratentorial periventricular and subcortical white matter changes. No acute hemorrhage or abnormal extra-axial fluid collection. Ventricles: No hydrocephalus. No midline shift. Bones/joints: Unremarkable. No acute fracture. Soft tissues: Unremarkable. Sinuses: Unremarkable as visualized. No acute sinusitis. IMPRESSION: No acute post-traumatic intracranial abnormality. Non-specific white matter changes, most commonly seen with small vessel disease. Electronically signed by: Rikki Ruffin M.D. 05/08/25 21:51 PM
--- NOTE | 2025-05-08 21:56 | XRay Report ---
Exam(s): XR CXR 1 VIEW EXAM: XR Chest, 1 View CLINICAL HISTORY: Reason for exam: Trauma. TECHNIQUE: Frontal view of the chest. COMPARISON: Prior chest x-ray from March 26, 2025. FINDINGS: Lungs: Unremarkable. No consolidation. Pleural space: Unremarkable. No pneumothorax. Heart: Mild cardiomegaly. Mediastinum: Tortuous and ectatic aorta. Normal mediastinal contour. Bones/joints: There is an acute right humeral head fracture. Advanced dextroscoliosis of the thoracolumbar junction. Diffuse osteopenia throughout the visualized bones. IMPRESSION: No evidence of acute thoracic injury. If there is continued clinical concern, recommend CT scan of the chest for further evaluation. Acute right humeral head fracture. Electronically signed by: Krysten Chao MD 05/08/25 21:55 PM
--- NOTE | 2025-05-08 22:06 | CT Scan Report ---
Exam(s): CT C SPINE EXAM: CT Cervical Spine Without Intravenous Contrast CLINICAL HISTORY: Trauma. TECHNIQUE: Axial computed tomography images of the cervical spine without intravenous contrast. CTDI is 25.38 mGy and DLP is 1738.39 mGy-cm. Automated exposure control was utilized for the study. A dose lowering technique was utilized adhering to the principles of ALARA. COMPARISON: No relevant prior studies available. FINDINGS: Vertebrae: No acute fracture. Maintenance of height of the vertebral bodies. No subluxation. Discs/spinal canal/neural foramina: Multilevel degenerative throughout the cervical spine. Soft tissues: Prevertebral soft tissues are unremarkable. IMPRESSION: No acute post-traumatic abnormality. Multilevel degenerative changes. Electronically signed by: Rikki Ruffin M.D. 05/08/25 22:05 PM
--- NOTE | 2025-05-08 22:17 | CT Scan Report ---
Exam(s): CT L SPINE EXAM: CT Lumbar Spine Without Intravenous Contrast CLINICAL HISTORY: Trauma. TECHNIQUE: Axial computed tomography images of the lumbar spine without intravenous contrast. CTDI is 25.83 mGy and DLP is 1738.39 mGy-cm. Automated exposure control was utilized for the study. A dose lowering technique was utilized adhering to the principles of ALARA. COMPARISON: CT abdomen pelvis 03/18/2025. FINDINGS: Vertebrae: No acute fracture. Maintenance of height of the vertebral bodies. Severe S shaped scoliosis. Posterior laminectomy with bilateral facet bone fusion material from L4-L5. Bones are osteopenic. Discs/spinal canal/neural foramina: Diffuse degenerative changes greatest along the inner curvature of the scoliosis of the level of right T12-L1 vertebral body and along the inner curvature of the scoliosis from left aspect of the L3 through L5 vertebral bodies. Soft tissues: Atherosclerotic vascular calcifications. Bibasilar atelectasis. IMPRESSION: No acute post-traumatic abnormality. Severe scoliosis with postoperative and degenerative changes as described above. Electronically signed by: Rikki Ruffin M.D. 05/08/25 22:16 PM
[2025-05-09 00:53] LABS: Appearance Urine Clear (Clear); Bacteria Urine Automated 1+ (None Seen); Cast Urine Automated 0-2 /lpf (0-2); Glucose Urine UA Negative (Negative); RBC Urine Automated 0-2 /hpf (0-2); WBC Urine Automated 21-50 /hpf (0-5)
--- NOTE | 2025-05-09 01:50 | History & Physical Report ---
Date of Service May 09, 2025 Assessment & Plan (1) Closed fracture of head of right humerus: (2) Anterior dislocation of right shoulder: (3) Chronic anticoagulation: (4) History of cardiac cath: Plan The patient is an 84-year-old female with a past medical history including eso phageal dysphagia, hyperlipidemia, bladder dysfunction, interval bowel syndrome, sacroiliitis, hypertension, COPD, depression and anxiety, history of RCA drug- eluting stent, hypertensive heart disease, chronic diastolic heart failure, and history of intestinal obstruction. The patient is referred to the emergency department from [facility] after a ground-level fall and sustained right upper arm pain, with x-ray in the ED showing an acute right humeral head and neck fracture. She reports that she was getting something out of her top dresser drawer, and then she found herself up in the air and then onto the ground. She does not have any other recollection of events before or immediately after falling other than having significant pain in her right arm and shoulder. She had less pain in the right lower leg. She does report hitting her head, but denies loss of consciousness. She is on Eliquis, and therefore had CT scan of the head, and cervical spine, both of which were negative for acute events. CT scan of the lumbar spine showed severe scoliosis and postoperative changes. X-ray of the right tib/fib were negative. X-rays of the right forearm were negative. From the ED the patient received the following: Normal saline for 2050 mL bolus, Tylenol 1 g IV, Zofran 4 mg IV, and serial doses of fentanyl 50 mcg, then 25 mcg, then 25 mcg IV. The patient was then referred for evaluation for admission to the [facility]. Closed fracture of right humeral head/anterior dislocation of right shoulder- N.p.o. after midnight Patient is on Eliquis, which will be held. Her last dosing was the morning of 05/08. Acetaminophen 1 g IV every 8 hours as needed for mild pain or fever Dilaudid 0.25 mg IV every 3 hours as needed for moderate pain Dilaudid 0.5 mg IV every 3 hours as needed for severe pain Zofran 4 mg IV every 6 hours as needed Pantoprazole 40 mg IV daily Narcan per protocol as needed NSS 80 mL/h Consider orthopedic surgery Dr. Keith [address] CAD/history of stented right coronary artery with GRETCHEN/hypertensive heart disease/chronic diastolic CHF/hypertension- N.p.o. as above Hold torsemide, spironolactone, metoprolol tartrate. Her last dose of apixaban was the morning of 05/[address] her on anticoagulation however due to recent fall and history of head trauma for at least 24 hours. COPD- Continue inhalers as an outpatient setting, Anoro Ellipta, and Arnuity Ellipta. DuoNebs every 2 hours as needed CKD- Creatinine 2.10 upon admission, with range 1.79-2.32 Follow serial laboratories Anemia- Hemoglobin 9.1, with base range 9-10.3 No suggestion of blood loss with recent trauma Follow serial CBC with differential every morning Hyperlipidemia- Holding atorvastatin until no longer n.p.o. Depression and anxiety- Until milligram p.o., hold quetiapine, sertraline Status post fall- Patient reports that she is not unclear as to why she fell. It appears that she was on nitrofurantoin, which should not not be used for her in the future again. History of Present Illness Chief Complaint: The patient is referred to the emergency department from [facility] after a ground-level fall and sustained right upper arm pain, with x-ray in the ED showing an acute right humeral head and neck fracture. She reports that she was getting something out of her top dresser drawer, and then she found herself up in the air and then onto the ground. She does not have any other recollection of events before or immediately after falling other than having significant pain in her right arm and shoulder. She had less pain in the right lower leg. She does report hitting her head, but denies loss of consciousness. She is on Eliquis, and therefore had CT scan of the head, and cervical spine, both of which were negative for acute events. CT scan of the lumbar spine showed severe scoliosis and postoperative changes. X-ray of the right tib/fib were negative. X-rays of the right forearm were negative. From the ED the patient received the following: Normal saline for 2050 mL bolus, Tylenol 1 g IV, Zofran 4 mg IV, and serial doses of fentanyl 50 mcg, then 25 mcg, then 25 mcg IV. Primary Care Provider: [facility] The patient is an 84-year-old female with a past medical history including esophageal dysphagia, hyperlipidemia, bladder dysfunction, interval bowel syndrome, sacroiliitis, hypertension, COPD, depression and anxiety, history of RCA drug-eluting stent, hypertensive heart disease, chronic diastolic heart failure, and history of intestinal obstruction. The patient is referred to the emergency department from [facility] after a ground-level fall and sustained right upper arm pain, with x-ray in the ED showing an acute right humeral head and neck fracture. She reports that she was getting something out of her top dresser drawer, and then she found herself up in the air and then onto the ground. She does not have any other recollection of events before or immediately after falling other than having significant pain in her right arm and shoulder. She had less pain in the right lower leg. She does report hitting her head, but denies loss of consciousness. She is on Eliquis, and therefore had CT scan of the head, and cervical spine, both of which were negative for acute events. CT scan of the lumbar spine showed severe scoliosis and postoperative changes. X-ray of the right tib/fib were negative. X-rays of the right forearm were negative. From the ED the patient received the following: Normal saline for 2050 mL bolus, Tylenol 1 g IV, Zofran 4 mg IV, and serial doses of fentanyl 50 mcg, then 25 mcg, then 25 mcg IV. The patient was then referred for evaluation for admission to the [facility]. Allergies Allergy/AdvReac Type Severity Reaction Status Date / Time cephalexin [From Keflex] Allergy Intermediate Unsure Verified 04/27/25 10:09 lactose Allergy Intermediate GI Issues Verified 04/27/25 10:09 Home Medications Medication Instructions Recorded Confirmed Type Oxygen Home 07/15/19 05/08/25 History acetaminophen 500 mg tablet 1,000 mg PO DAILY PRN Fever Or Pain 09/28/22 05/08/25 History (Tylenol Extra Strength) apixaban 2.5 mg tablet (Eliquis) 2.5 mg PO BID 09/28/22 05/08/25 History atorvastatin 40 mg tablet 40 mg PO HS 09/28/22 05/08/25 History ipratropium 0.5 mg-albuterol 3 mg 3 ml inhalation QID PRN 09/28/22 05/08/25 History (2.5 mg base)/3 mL nebulization cough/wheezing soln metoprolol tartrate 25 mg tablet 12.5 mg PO BID 09/28/22 05/08/25 History torsemide 20 mg tablet 20 mg PO DAILY 09/28/22 05/08/25 History Saccharomyces boulardii 250 mg 250 mg PO DAILY 03/16/25 05/08/25 History capsule budesonide 160 mcg-glycopyr 9 2 inh inhalation BID 03/16/25 05/08/25 History mcg-formot 4.8 mcg/actuation HFA inhaler (Breztri Aerosphere) cholecalciferol (vitamin D3) 25 125 mcg PO DAILY 03/16/25 05/08/25 History mcg (1,000 unit) capsule (Vitamin D3) cranberry 500 mg capsule 500 mg PO DAILY 03/16/25 05/08/25 History estradiol 0.01% (0.1 mg/gram) 1 appful vaginal . AND Saturday03/16/25 05/08/25 History vaginal cream lactase 3,000 unit tablet 3,000 unit PO TID 03/16/25 05/08/25 History (Dairy-Aid) lidocaine 4 % topical patch 1 patch topical DAILY Pain 03/16/25 05/08/25 History spironolactone 25 mg tablet 12.5 mg PO .MON,WED,Sat03/16/25 05/08/25 History vitamins A,C,E-diiq-wjdmho 4,296 1 cap PO BID 03/16/25 05/08/25 History mcg-226 mg-90 mg capsule (PreserVision AREDS) Gas Relief (simethicone) 1 - 2 cap PO UD PRN 03/26/25 05/08/25 History bloating,pressure,fullness acetaminophen 500 mg tablet 1,000 mg PO AMHS 03/26/25 05/08/25 History lorazepam 0.5 mg tablet 0.5 mg PO Q6 PRN Anxiety 03/26/25 05/08/25 History quetiapine 25 mg tablet (Seroquel) 12.5 mg PO BID 04/27/25 05/08/25 History cyanocobalamin (vitamin B-12) 1,000 mcg PO DAILY 05/08/25 05/08/25 History 1,000 mcg tablet (Vitamin B-12) dextrin 3 gram/4 gram oral powder 2 tsp PO TID 05/08/25 05/08/25 History (Clear Fiber) nitrofurantoin 100 mg PO BID 05/08/25 05/08/25 History monohydrate/macrocrystals 100 mg capsule sertraline 25 mg tablet 25 mg PO DAILY 05/08/25 05/08/25 History sertraline 50 mg tablet 50 mg PO DAILY 05/08/25 05/08/25 History tramadol 50 mg tablet 50 mg PO Q6H PRN Pain 05/08/25 05/08/25 History Past Med/Surg History Problem List (Updated 05/09/25 @ 05:46 by Juancarlos Negrete MD) Chronic anticoagulation Abrasion of right elbow (Acute) Pain of right lower leg (Acute) Right forearm pain (Acute) Anterior dislocation of right shoulder (Acute) Closed fracture of head of right humerus (Acute) Fall (Acute) Wound of left buttock (Acute) Abscess of left buttock Esophageal dysphagia Encounter for pre-operative examination Hyperlipidemia Abdominal pain, lower Change in bowel habits Bladder dysfunction SOB (shortness of breath) Periumbilical pain Ankylosis of lumbar spine IBS (irritable bowel syndrome) Sacroiliitis Osteoporosis Essential hypertension Dysphagia reason for upcoming procedure COPD (chronic obstructive pulmonary disease) well controlled with inhalers Depression Anxiety Lumbar stenosis with neurogenic claudication Status post insertion of drug-eluting stent into right coronary artery for coronary artery disease 06/2019 at [facility] x1 stent. Hypertensive heart disease with chronic diastolic congestive heart failure History of intestinal obstruction surgical intervention Medical History Poor vision not "blind" On home oxygen therapy 2lpm via n/c at Osteoarthritis Degenerative disc disease Chronic back pain GERD (gastroesophageal reflux disease) On anticoagulant therapy Hyperlipidemia Surgical History History of cardiac cath at [facility] x1 stent. Dr Galaviz. History of bilateral tubal ligation History of lumbar surgery S/P epidural steroid injection History of cholecystectomy History of esophagogastroduodenoscopy (EGD) History of colonoscopy History of cataract surgery bilateral History of tonsillectomy Hx of appendectomy H/O laminectomy History of bowel resection ~ Family History Father Myocardial infarction Mother Myocardial infarction Aunt Breast cancer Daughter Diabetes Other No family history of adverse response to anesthesia Social History Smoking Status: Former smoker Second Hand Exposure: No (hx); Do You Dip or Chew Tobacco: No; Hx Alcohol Use: Yes Alcohol Intake Frequency: Monthly or Less Hx Substance Use: No Preferred Language: Citizen Of [place] Communication Ability: Effective Visual Impairment: Limited Hearing Ability: Normal Etl Analyst Developer Required: No Beliefs That Will Affect Care: None marital status: / Current Living Situation: Personal Care Facility Current Living Situation Comment: [facility] current occupational status: retired How many Children do You have: 2 Other Information That Helps Us Care for You: No Feels Safe at Home: Yes Safety Concerns: Feels Safe At This Time Diet: regular caffeine: Yes during the past year weight has: remained stable Assistive Devices: Cane, Glasses, Lift Chair, Oxygen - at Night, Walker and Wheelchair Review of Systems Review of Systems: The patient denies chest pain, palpitations, shortness of breath, dyspnea on exertion, cough, lower extremity swelling, sore throat, fevers, chills, sweats, nausea, vomiting, diarrhea , constipation, abdominal pain, pelvic pain, blood in urine or stool, dysuria, urinary frequency or urgency, loss of consciousness, rash, abnormal bruising or bleeding, No focal weakness, numbness or tingling in left arm or bilateral legs, generalized arthralgias or myalgias, back or neck pain, or night sweats. The review of systems is otherwise negative other than for that already noted above, and at least 10 systems have been reviewed. Physical Exam Physical Exam: The patient is awake, alert and oriented 3, well developed and well nourished, normocephalic and atraumatic, lying in bed and in mild to moderate distress secondary to right arm pain HEENT--PERRL, EOMI, mucous membranes and oropharynx dry. Neck--supple. No JVD. No bruits. Thyroid normal, trachea midline, no adenopathy. Heart--normal S1 and S2. No murmurs, rubs or gallops. Lungs--clear bilaterally, no respiratory distress, no accessory muscle use. Abdomen--normal bowel sounds and soft. Nontender. Nondistended, no hernias or masses, no organomegaly. Extremities--no cyanosis or clubbing. No edema. There are good distal pulses b/l. Dermatologic--normal skin turgor, normal color, no abnormal lymph nodes, no rash. Neurologic--cranial nerves II through XII grossly intact. Rheumatologic-- limited exam due to painful right arm and shoulder. Normal range of motion except for right arm and shoulder Psychiatric--normal affect. Results & Data Results & Data Vital Signs (Past 12 Hours) Vital Signs Temp Pulse Pulse Resp BP BP Pulse Ox 05/09/25 01:00 74 18 153/79 H 99 05/09/25 00:00 82 14 151/101 H 98 05/08/25 23:28 80 05/08/25 23:00 78 14 130/70 99 05/08/25 22:44 80 16 143/76 H 98 05/08/25 22:00 83 16 100 05/08/25 21:00 79 20 100 05/08/25 20:00 80 18 164/89 H 100 05/08/25 19:30 05/08/25 19:28 73 05/08/25 19:25 36.8 C 79 20 166/74 H 100 05/08/25 19:25 36.8 C 79 20 166/74 H 99 O2 Del Method O2 Flow Rate 05/09/25 01:00 Nasal Cannula 3 05/09/25 00:00 Nasal Cannula 3 05/08/25 23:28 05/08/25 23:00 Room Air 05/08/25 22:44 05/08/25 22:00 Nasal Cannula 2 05/08/25 21:00 Nasal Cannula 05/08/25 20:00 Nasal Cannula 05/08/25 19:30 Room Air 05/08/25 19:28 05/08/25 19:25 Nasal Cannula 2 05/08/25 19:25 Nasal Cannula 2 Laboratory Results Laboratory Results WBC 8.24 K/ul (4.8-10.8) 05/08/25 19:49 RBC 2.82 M/uL (4.20-5.40) L 05/08/25 19:49 Hgb 9.1 g/dl (12.0-16.0) L 05/08/25 19:49 Hct 28.0 % (37.0-47.0) L 05/08/25 19:49 MCV 99.3 fL (80.0-100.0) 05/08/25 19:49 MCH 32.3 pg (25.0-34.0) 05/08/25 19:49 MCHC 32.5 g/dL (32.0-36.0) 05/08/25 19:49 RDW Std Deviation 57.2 fL (36.4-46.3) H 05/08/25 19:49 RDW Coeff of Breonna 15.7 % (11.5-14.5) H 05/08/25 19:49 Plt Count 264 K/uL (130-400) 05/08/25 19:49 MPV 10.1 fL (9.4-12.4) 05/08/25 19:49 Immature Gran % (Auto) 1.1 % 05/08/25 19:49 Neut % (Auto) 72.5 % 05/08/25 19:49 Lymph % (Auto) 9.1 % 05/08/25 19:49 [place] % (Auto) 13.1 % 05/08/25 19:49 Eos % (Auto) 3.6 % 05/08/25 19:49 Baso % (Auto) 0.6 % 05/08/25 19:49 Neut # (Auto) 5.97 K/uL (1.40-6.50) 05/08/25 19:49 Lymph # (Auto) 0.75 K/uL (1.20-3.40) L 05/08/25 19:49 [place] # (Auto) 1.08 K/uL (0.11-0.59) H 05/08/25 19:49 Eos # (Auto) 0.30 K/uL (0.00-0.50) 05/08/25 19:49 Baso # (Auto) 0.05 K/uL (0.00-0.20) 05/08/25 19:49 Immature Gran # (Auto) 0.09 K/uL (0.01-0.20) 05/08/25 19:49 PT 10.5 Seconds (9.0-12.0) 05/08/25 19:49 INR 1.0 (0.9-1.1) 05/08/25 19:49 APTT 26 Seconds (21-31) 05/08/25 19:49 PTT Ratio 1.0 05/08/25 19:49 Sodium 136 mmol/L (136-145) 05/08/25 19:49 Potassium 4.3 mmol/L (3.5-5.1) 05/08/25 19:49 Chloride 99 mmol/L (98-107) 05/08/25 19:49 Carbon Dioxide 28 mmol/L (21-32) 05/08/25 19:49 Anion Gap 9 (3-11) 05/08/25 19:49 BUN 49 mg/dl (6-23) H 05/08/25 19:49 Creatinine 2.10 mg/dl (0.6-1.2) H 05/08/25 19:49 Est Cr Clr Drug Dosing 15.2 ml/min 05/08/25 19:49 eGFR 22.52 05/08/25 19:49 BUN/Creatinine Ratio 23.3 (10-20) H 05/08/25 19:49 Glucose 128 mg/dl (70-99(Fasting)) H 05/08/25 19:49 Calcium 10.0 mg/dl (8.6-10.3) 05/08/25 19:49 Total Bilirubin 0.4 mg/dl (0.2-1.0) 05/08/25 19:49 AST 15 U/L (13-39) 05/08/25 19:49 ALT 13 U/L (7-52) 05/08/25 19:49 Alkaline Phosphatase 129 U/L (34-104) H 05/08/25 19:49 Troponin I High Sens 7.9 pg/ml (0-14) 05/08/25 19:49 Total Protein 6.2 gm/dl (6.0-8.3) 05/08/25 19:49 Albumin 3.4 gm/dl (3.4-5.0) 05/08/25 19:49 Globulin 2.8 gm/dl (2.5-4.0) 05/08/25 19:49 Albumin/Globulin Ratio 1.2 (0.9-2) 05/08/25 19:49 Lipase 114 U/L (11-82) H 05/08/25 19:49 Urine Color Yellow 05/09/25 00:30 Urine Appearance Clear (Clear) 05/09/25 00:30 Urine pH 5.5 (4.5-7.5) 05/09/25 00:30 Ur Specific [place] 1.015 (1.000-1.030) 05/09/25 00: Urine Protein Negative (Negative) 05/09/25 00:30 Urine Glucose (UA) Negative (Negative) 05/09/25 00: Urine Ketones Negative (Negative) 05/09/25: Urine Blood Negative (Negative) 05/09/25 Urine Nitrite Negative (Negative) 05/09/25: Urine Bilirubin Negative (Negative) 05/09/25: Urine Urobilinogen Negative (Negative) 05/09/25 00: Ur Leukocyte Esterase 2+ (Negative) H 05/09/25 00: Urine WBC (Auto) 21-50 /hpf (0-5) H 05/09/25 00:30 Urine RBC (Auto) 0-2 /hpf (0-2) 05/09/25: U Hyaline Cast (Auto) 0-2 /lpf (0-2) 05/09/25 00: U Epithel Cells (Auto) 6-10 /hpf (0-2) H 05/09/25 00:30 Urine Bacteria (Auto) 1+ (None Seen) H 05/09/25 00: Urine Comment 05/09/25 00:[address] 05/08/25 19:28 Exam(s): CT C SPINE EXAM: CT Cervical Spine Without Intravenous Contrast CLINICAL HISTORY: Trauma. TECHNIQUE: Axial computed tomography images of the cervical spine without intravenous contrast. CTDI is 25.38 mGy and DLP is 1738.39 mGy-cm. Automated exposure control was utilized for the study. A dose lowering technique was utilized adhering to the principles of ALARA. COMPARISON: No relevant prior studies available. FINDINGS: Vertebrae: No acute fracture. Maintenance of height of the vertebral bodies. No subluxation. Discs/spinal canal/neural foramina: Multilevel degenerative throughout the cervical spine. Soft tissues: Prevertebral soft tissues are unremarkable. IMPRESSION: No acute post-traumatic abnormality. Multilevel degenerative changes. Electronically signed by: Rikki Ruffin M.D. 05/08/25 22:05 PM Forearm X-Ray 05/08/25 19:28 Exam(s): XR RIGHT FOREARM, 2 views EXAM: XR Right Forearm, 2 Views CLINICAL HISTORY: Trauma. TECHNIQUE: Frontal and lateral views of the right forearm. COMPARISON: No relevant prior studies available. FINDINGS: Bones/joints: Unremarkable. No acute fracture. No dislocation. Soft tissues: Unremarkable. IMPRESSION: No acute post-traumatic abnormality. Electronically signed by: Rikki Ruffin M.D. 05/08/25 21:[address] 05/08/25 19:28 Exam(s): CT HEAD Without Contrast EXAM: CT Head Without Intravenous Contrast CLINICAL HISTORY: Trauma. TECHNIQUE: Axial computed tomography images of the head/brain without intravenous contrast. CTDI is 25.83 mGy and DLP is 1738.39 mGy-cm. Automated exposure control was utilized for the study. A dose lowering technique was utilized adhering to the principles of ALARA. COMPARISON: 03/11/2025 FINDINGS: Brain: Age-appropriate generalized atrophy. No acute stroke. Diffuse supratentorial periventricular and subcortical white matter changes. No acute hemorrhage or abnormal extra-axial fluid collection. Ventricles: No hydrocephalus. No midline shift. Bones/joints: Unremarkable. No acute fracture. Soft tissues: Unremarkable. Sinuses: Unremarkable as visualized. No acute sinusitis. IMPRESSION: No acute post-traumatic intracranial abnormality. Non-specific white matter changes, most commonly seen with small vessel disease. Electronically signed by: Rikki Ruffin M.D. 05/08/25 21:51 PM Humerus X-Ray 05/08/25 19:28 Exam(s): XR RIGHT HUMERUS, 2+ views EXAM: XR Right Humerus, 3 Views CLINICAL HISTORY: Trauma. TECHNIQUE: Frontal and lateral views of the right humerus. COMPARISON: No relevant prior studies available. FINDINGS: Bones/joints: Acute comminuted and impacted fracture of the right humeral head and neck. Suspected anterior dislocation and displacement of the fractured humeral head relative to the glenoid. Bones are osteopenic. Soft tissues: Soft tissue swelling surrounding the shoulder. IMPRESSION: Acute comminuted and impacted fracture of the right humeral head and neck. Suspected anterior dislocation and displacement of the fractured humeral head relative to the glenoid. Electronically signed by: Rikki Ruffin M.D. 05/08/25 21:[address] 05/08/25 19:28 Exam(s): CT L SPINE EXAM: CT Lumbar Spine Without Intravenous Contrast CLINICAL HISTORY: Trauma. TECHNIQUE: Axial computed tomography images of the lumbar spine without intravenous contrast. CTDI is 25.83 mGy and DLP is 1738.39 mGy-cm. Automated exposure control was utilized for the study. A dose lowering technique was utilized adhering to the principles of ALARA. COMPARISON: CT abdomen pelvis 03/18/2025. FINDINGS: Vertebrae: No acute fracture. Maintenance of height of the vertebral bodies. Severe S shaped scoliosis. Posterior laminectomy with bilateral facet bone fusion material from L4-L5. Bones are osteopenic. Discs/spinal canal/neural foramina: Diffuse degenerative changes greatest along the inner curvature of the scoliosis of the level of right T12-L1 vertebral body and along the inner curvature of the scoliosis from left aspect of the L3 through L5 vertebral bodies. Soft tissues: Atherosclerotic vascular calcifications. Bibasilar atelectasis. IMPRESSION: No acute post-traumatic abnormality. Severe scoliosis with postoperative and degenerative changes as described above. Electronically signed by: Rikki Ruffin M.D. 05/08/25 22:16 PM Tibia/Fibula X-Ray 05/08/25 19:28 Exam(s): XR RIGHT TIB/FIB, 2 views EXAM: XR Right Tibia and Fibula, 2 Views CLINICAL HISTORY: Trauma. TECHNIQUE: Frontal and lateral views of the right tibia and fibula. COMPARISON: No relevant prior studies available. FINDINGS: Bones/joints: Small posterior calcaneal bone spur. No acute fracture. No dislocation. Degenerative changes of the knee greatest in the lateral joint space. Soft tissues: Vascular calcifications. No radiopaque foreign body. IMPRESSION: No acute post-traumatic abnormality. Senescent changes. Electronically signed by: Rikki Ruffin M.D. 05/08/25 21:05 PM Chest X-Ray 05/08/25 19:29 Exam(s): XR CXR 1 VIEW EXAM: XR Chest, 1 View CLINICAL HISTORY: Reason for exam: Trauma. TECHNIQUE: Frontal view of the chest. COMPARISON: Prior chest x-ray from March 26, 2025. FINDINGS: Lungs: Unremarkable. No consolidation. Pleural space: Unremarkable. No pneumothorax. Heart: Mild cardiomegaly. Mediastinum: Tortuous and ectatic aorta. Normal mediastinal contour. Bones/joints: There is an acute right humeral head fracture. Advanced dextroscoliosis of the thoracolumbar junction. Diffuse osteopenia throughout the visualized bones. IMPRESSION: No evidence of acute thoracic injury. If there is continued clinical concern, recommend CT scan of the chest for further evaluation. Acute right humeral head fracture. Electronically signed by: Krysten Chao MD 05/08/25 21:55 PM Code Status & VTE Plan Code Status DNR/DNI VTE Prophylaxis Plan VTE Prophylaxis will be ordered: Yes PG Care Time/CCT Total # of Minutes Spent Total Time Spent with Patient: Total time spent is greater than 50% in coordination of care (as documented) at patient's floor/unit and/or counseling patient: Coding Level of Care Code 97938 INT INP/OBS CARE 3/75MIN Diagnoses Closed fracture of head of right humerus S42.291A Encounter type: initial encounter Anterior dislocation of right shoulder S43.014A Encounter type: initial encounter Chronic anticoagulation Z79.01 History of cardiac cath Z98.890 (1) Closed fracture of head of right humerus Encounter type: initial encounter Qualified Code(s): S42.291A - Other displaced fracture of upper end of right humerus, initial encounter for closed fracture (2) Anterior dislocation of right shoulder Encounter type: initial encounter Qualified Code(s): S43.014A - Anterior dislocation of right humerus, initial encounter
--- NOTE | 2025-05-09 02:03 | Emergency Department Note ---
ED Visit Note I was consulted by the Advanced Practice Provider, Eleonora Prater. I performed a substantive portion of the visit. This includes aspects of: History/MDM: This is a medically complex 84-year-old female who presented with a fall with isolated head and extremity trauma. Patient is mostly complaining of right upper extremity and shoulder pain. She had very poor range of motion but was neurovascularly intact. Patient was made an ED injury alert and we proceeded with labs as well as imaging. Both plain films as well as CT imaging were obtained. CTH independently interpreted by me reveals no evidence of ICH. No significant hydrocephalus. No major skull fractures. CTH does not demonstrate findings to suggest an etiology of the patient's symptoms or presentation, today. CT C-spine revealed no acute fracture or dislocation. CXR independently interpreted by me reveals no evidence of focal consolidation to suggest pna. No large pneumothorax or pleural effusion. Plain films of the right humerus/shoulder revealed a fracture dislocation of the humeral head. Orthopedic surgery was consulted. Mild anemia and CKD that has been fluctuating as compared to prior. Urinalysis appears to be contaminated. Given the patient's injuries as well as pain control, was felt to be reasonable for admission. Patient was subsequently admitted to the hospitalist service. [facility] .
[2025-05-09] MEDS: SODIUM CHLORIDE 0.9% 1,000 ML IV SCH (03:21)
[2025-05-09] MEDS ORDERED: NALOXONE HCL 0.4 MG/1 ML VIAL/CARP IV PRN (04:17)
[2025-05-09] MEDS ORDERED: ALBUT/IPRATROP 3MG/0.5MG NEB 3 ML VIAL NEB PRN (04:17)
[2025-05-09] MEDS ORDERED: ONDANSETRON INJ 2 MG/ML 2 ML VIAL IV PRN (04:17)
[2025-05-09] MEDS ORDERED: ACETAMINOPHEN 1000 MG/100 ML IV IV PRN (04:17)
[2025-05-09] MEDS ORDERED: ALBUT/IPRATROP 3MG/0.5MG NEB 3 ML VIAL INH PRN (04:17)
[2025-05-09] MEDS ORDERED: HYDROmorphone INJ 0.5 MG/0.5 ML SYR IV PRN (04:41)
[2025-05-09] MEDS: HYDROmorphone INJ 0.5 MG/0.5 ML SYR IV PRN (04:53)
[2025-05-09] MEDS: ACETAMINOPHEN 500 MG TAB PO PRN (04:53)
--- NOTE | 2025-05-09 07:59 | Hospitalist Progress Note ---
Date of Service May 09, 2025 Assessment & Plan (1) Closed fracture of head of right humerus: (2) Anterior dislocation of right shoulder: (3) Osteoporosis with current pathological fracture: (4) Fall: (5) Abrasion of right elbow: (6) Right forearm pain: (7) Pain of right lower leg: (8) Chronic anticoagulation: (9) Chronic kidney disease, stage 4 (severe): (10) Hypertensive heart disease with chronic diastolic congestive heart failure: (11) COPD (chronic obstructive pulmonary disease): (12) Dependence on supplemental oxygen: Plan In summary this is an 84-year-old female admitted to [facility] after a ground-level fall that was unwitnessed resulting in right anterior glenohumeral dislocation and humeral head fracture #Right glenohumeral anterior dislocation with right humeral head fracture // Ground level fall, unwitnessed // Osteoporosis with pathologic fracture, initial encounter Regarding the patient's fracture, orthopedic surgery is considering surgical intervention however the patient is chronically anticoagulated with Eliquis, requiring delaying her surgical intervention until this is cleared; patient does have a previous diagnosis of osteoporosis but does not appear to be on any prescribed or [id number] medications for prevention of progressive disease, this will be initiated as detailed below Start acetaminophen 1000 mg p.o. every 8 hours scheduled Start Toradol 15 mg IV every 6 hours scheduled through 05/13 or at the time of discharge, whichever occurs first Continue hydromorphone 0.25 mg IV and 0.5 mg IV every 3 hours as needed for moderate or severe pain, respectively Start vitamin D and calcium supplementation Orthopedic surgery consulted #Chronic anticoagulation The patient is chronically anticoagulated with Eliquis 2.5 mg p.o. twice daily however there is no documented medical problem for which they take this medication; pending further discussion to determine indication for chronic anticoagulation Remainder of the patient's chronic medical conditions are without acute exacerbation; we will continue her routine medical care for these conditions during her hospitalization Admission and Anticipated Discharge Date Admission Date: May 09, 2025 Subjective Ms. Mustafa is an 84-year-old female whose active medical conditions include osteoporosis, CKD stage 4 in the setting of hypertension, heart failure with preserved ejection fraction among other chronic medical conditions who presented to the [facility] On 05/08 after an unwitnessed fall sustained at their facility resulting in significant pain and inability to move the right shoulder joint subsequently admitted for orthopedic surgery evaluation and pain management due to a sustained right humeral head comminuted fracture. No acute events since admission; patient is relatively comfortable with respect to their expected discomfort considering their injury. They deny any distal paresthesias or loss of motor function of the affected extremity. Review of Systems Review of Systems: Review of constitutional, cardiovascular, pulmonary, gastrointestinal, neurologic, musculoskeletal systems was unremarkable except for as detailed above Physical Exam Physical Exam: General: Elderly female in no acute distress Vital Signs: Reviewed HEENT: Pupils equally round reactive to light; extraocular motion intact; moist mucous membranes Pulmonary: Symmetric chest wall excursion without restriction; clear to auscultation bilaterally Cardiovascular: Regular rate and rhythm without murmurs, rubs, or gallops; S1 and S2 normal; right radial pulse 2+ with brisk capillary refill Gastrointestinal: Soft, nondistended Neurologic: Cranial nerves II to XII grossly intact; no discernible focal weakness nor paresthesia excluding assessment of right shoulder movement considering patient's acute injury Skin: Ecchymosis overlying the lateral shoulder extending anteriorly without palpable hematoma Results & Data Results & Data Vital Signs (Past 12 Hours) Vital Signs Temp Pulse Pulse Resp BP Pulse Ox O2 Del Method 05/09/25 04:36 Nasal Cannula 05/09/25 04:34 37.0 C 89 18 173/77 H 93 Room Air 05/09/25 03:23 101 H 05/09/25 03:00 91 H 18 99 Nasal Cannula 05/09/25 02:00 84 20 158/84 H 98 Nasal Cannula 05/09/25 01:00 74 18 153/79 H 99 Nasal Cannula 05/09/25 00:00 82 14 151/101 H 98 Nasal Cannula 05/08/25 23:28 80 05/08/25 23:00 78 14 130/70 99 Room Air 05/08/25 22:44 80 16 143/76 H 98 05/08/25 22:00 83 16 100 Nasal Cannula 05/08/25 21:00 79 20 100 Nasal Cannula 05/08/25 20:00 80 18 164/89 H 100 Nasal Cannula O2 Flow Rate 05/09/25 04:36 2 05/09/25 04:34 05/09/25 03:23 05/09/25 03:00 3 05/09/25 02:00 3 05/09/25 01:00 3 05/09/25 00:00 3 05/08/25 23:28 05/08/25 23:00 05/08/25 22:44 05/08/25 22:00 2 05/08/25 21:00 05/08/25 20:00 PG Care Time/CCT Total # of Minutes Spent Total Time Spent with Patient: Total time spent is greater than 50% in coordination of care (as documented) at patient's floor/unit and/or counseling patient: Coding Level of Care Code 19853 SUB INP/OBS CARE 2/35MIN Diagnoses Closed fracture of head of right humerus S42.291A Encounter type: initial encounter Anterior dislocation of right shoulder S43.014A Encounter type: initial encounter Age-related osteoporosis with current pathological fracture, initial encounter M80.00XA Encounter type: initial encounter Osteoporosis type: age-related Fall W19.XXXA Encounter type: initial encounter Abrasion of right elbow S50.311A Encounter type: initial encounter Right forearm pain M79.631 Pain of right lower leg M79.661 Chronic anticoagulation Z79.01 Chronic kidney disease, stage 4 (severe) N18.4 Hypertensive heart disease with chronic diastolic congestive heart failure I11.0; I50.32 Simple chronic bronchitis J41.0 COPD type: chronic bronchitis Chronic bronchitis type: simple Dependence on supplemental oxygen Z99.81 (1) Closed fracture of head of right humerus Encounter type: initial encounter Qualified Code(s): S42.291A - Other displaced fracture of upper end of right humerus, initial encounter for closed fracture (2) Anterior dislocation of right shoulder Encounter type: initial encounter Qualified Code(s): S43.014A - Anterior dislocation of right humerus, initial encounter (3) Osteoporosis with current pathological fracture Encounter type: initial encounter Osteoporosis type: age-related Qualified Code(s): M80.00XA - Age-related osteoporosis with current pathological fracture, unspecified site, initial encounter for fracture (4) Fall Encounter type: initial encounter Qualified Code(s): W19.XXXA - Unspecified fall, initial encounter (5) Abrasion of right elbow Encounter type: initial encounter Qualified Code(s): S50.311A - Abrasion of right elbow, initial encounter (11) COPD (chronic obstructive pulmonary disease) COPD type: chronic bronchitis Chronic bronchitis type: simple Qualified Code(s): J41.0 - Simple chronic bronchitis
--- NOTE | 2025-05-09 08:43 | Orthopedic Consultation ---
Date of Service May 09, 2025 Assessment & Plan (1) Closed fracture of head of right humerus: 84-year-old female evaluated for closed fracture of the head of right humerus. After looking at the x-ray and conducting physical exam, there is no strong evidence that the shoulder is actually dislocated. At this point, with her entire medical picture in mind, we will proceed with conservative treatment. Patient will remain in sling. Continue pain control. From orthopedic standpoint, she can be discharged back to [facility] whenever she is medically optimized to do so. Continue Current Treatment Weight bearing status: Out of bed with assistance, fall precautions Daily treatment: Physical Therapy/ Occupational Therapy per protocol Continue pain control Continue DVT prophylaxis PT/OT eval as needed Remainder care per primary team Stable for discharge from ortho standpoint, further planning per primary team History of Present Illness Reason for Consultation: Fracture to the head of right humerus Requesting Physician: . Attending Physician: Zev Baltazar DO 84-year-old female presented to the emergency department via EMS from [facility] for evaluation of a ground-level fall. The patient stated that she was trying to get something out of her top dresser drawer and then she fell onto the ground. Per EMS, the patient was laying weird on her right arm and shoulder. She had x-rays of her shoulder taken in the ER which showed the close fracture of the right humeral head. X-ray read out also appeared to show an anterior dislocation of the shoulder. Patient is on Eliquis. Patient was admitted for pain control and potential surgical planning if required. Allergies Allergy/AdvReac Type Severity Reaction Status Date / Time cephalexin [From Keflex] Allergy Intermediate Unsure Verified 04/27/25 10:09 lactose Allergy Intermediate GI Issues Verified 04/27/25 10:09 Home Medications Medication Instructions Recorded Confirmed Type Oxygen Home 07/15/19 05/08/25 History acetaminophen 500 mg tablet 1,000 mg PO DAILY PRN Fever Or Pain 09/28/22 05/08/25 History (Tylenol Extra Strength) apixaban 2.5 mg tablet (Eliquis) 2.5 mg PO BID 09/28/22 05/08/25 History atorvastatin 40 mg tablet 40 mg PO HS 09/28/22 05/08/25 History ipratropium 0.5 mg-albuterol 3 mg 3 ml inhalation QID PRN 09/28/22 05/08/25 History (2.5 mg base)/3 mL nebulization cough/wheezing soln metoprolol tartrate 25 mg tablet 12.5 mg PO BID 09/28/22 05/08/25 History torsemide 20 mg tablet 20 mg PO DAILY 09/28/22 05/08/25 History Saccharomyces boulardii 250 mg 250 mg PO DAILY 03/16/25 05/08/25 History capsule budesonide 160 mcg-glycopyr 9 2 inh inhalation BID 03/16/25 05/08/25 History mcg-formot 4.8 mcg/actuation HFA inhaler (Breztri Aerosphere) cholecalciferol (vitamin D3) 25 125 mcg PO DAILY 03/16/25 05/08/25 History mcg (1,000 unit) capsule (Vitamin D3) cranberry 500 mg capsule 500 mg PO DAILY 03/16/25 05/08/25 History estradiol 0.01% (0.1 mg/gram) 1 appful vaginal . AND Saturday03/16/25 05/08/25 History vaginal cream lactase 3,000 unit tablet 3,000 unit PO TID 03/16/25 05/08/25 History (Dairy-Aid) lidocaine 4 % topical patch 1 patch topical DAILY Pain 03/16/25 05/08/25 History spironolactone 25 mg tablet 12.5 mg PO .MON,WED,Sat03/16/25 05/08/25 History vitamins A,C,N-awsk-qciqwl 4,296 1 cap PO BID 03/16/25 05/08/25 History mcg-226 mg-90 mg capsule (PreserVision AREDS) Gas Relief (simethicone) 1 - 2 cap PO UD PRN 03/26/25 05/08/25 History bloating,pressure,fullness acetaminophen 500 mg tablet 1,000 mg PO AMHS 03/26/25 05/08/25 History lorazepam 0.5 mg tablet 0.5 mg PO Q6 PRN Anxiety 03/26/25 05/08/25 History quetiapine 25 mg tablet (Seroquel) 12.5 mg PO BID 04/27/25 05/08/25 History cyanocobalamin (vitamin B-12) 1,000 mcg PO DAILY 05/08/25 05/08/25 History 1,000 mcg tablet (Vitamin B-12) dextrin 3 gram/4 gram oral powder 2 tsp PO TID 05/08/25 05/08/25 History (Clear Fiber) nitrofurantoin 100 mg PO BID 05/08/25 05/08/25 History monohydrate/macrocrystals 100 mg capsule sertraline 25 mg tablet 25 mg PO DAILY 05/08/25 05/08/25 History sertraline 50 mg tablet 50 mg PO DAILY 05/08/25 05/08/25 History tramadol 50 mg tablet 50 mg PO Q6H PRN Pain 05/08/25 05/08/25 History Past Med/Surg History Problem List (Updated 05/09/25 @ 09:05 by Zev Baltazar DO) Osteoporosis with current pathological fracture Dependence on supplemental oxygen Chronic kidney disease, stage 4 (severe) Chronic anticoagulation Abrasion of right elbow (Acute) Pain of right lower leg (Acute) Right forearm pain (Acute) Anterior dislocation of right shoulder (Acute) Closed fracture of head of right humerus (Acute) Fall (Acute) Esophageal dysphagia Hyperlipidemia Change in bowel habits Bladder dysfunction Periumbilical pain Ankylosis of lumbar spine IBS (irritable bowel syndrome) Sacroiliitis Essential hypertension COPD (chronic obstructive pulmonary disease) well controlled with inhalers Depression Anxiety Lumbar stenosis with neurogenic claudication Hypertensive heart disease with chronic diastolic congestive heart failure Medical History (Updated 05/09/25 @ 09:05 by Zev Baltazar DO) Abscess of left buttock Wound of left buttock History of intestinal obstruction surgical intervention Poor vision not "blind" On home oxygen therapy 2lpm via n/c at Osteoarthritis Degenerative disc disease Chronic back pain GERD (gastroesophageal reflux disease) On anticoagulant therapy Hyperlipidemia Surgical History (Updated 05/09/25 @ 09:05 by Zev Baltazar DO) Status post insertion of drug-eluting stent into right coronary artery for coronary artery disease 06/2019 at [facility] x1 stent. History of cardiac cath at [facility] x1 stent. Dr Galaviz. History of bilateral tubal ligation History of lumbar surgery S/P epidural steroid injection History of cholecystectomy History of esophagogastroduodenoscopy (EGD) History of colonoscopy History of cataract surgery bilateral History of tonsillectomy Hx of appendectomy H/O laminectomy History of bowel resection ~ Family History Father Myocardial infarction Mother Myocardial infarction Aunt Breast cancer Daughter Diabetes Other No family history of adverse response to anesthesia Social History Smoking Status: Former smoker Second Hand Exposure: No (hx); Do You Dip or Chew Tobacco: No; Hx Alcohol Use: Yes Alcohol Intake Frequency: Monthly or Less Hx Substance Use: No Preferred Language: Uzbek Communication Ability: Effective Visual Impairment: Limited Hearing Ability: Normal [employer] Driver Required: No Beliefs That Will Affect Care: None marital status: / Current Living Situation: Personal Care Facility Current Living Situation Comment: [facility] current occupational status: retired How many Children do You have: 2 Other Information That Helps Us Care for You: No Feels Safe at Home: Yes Safety Concerns: Feels Safe At This Time Diet: regular caffeine: Yes during the past year weight has: remained stable Assistive Devices: Nebulizer, Oxygen - at Night, Oxygen - Continuous, Walker and Wheelchair Review of Systems All systems reviewed & are unremarkable except as noted in HPI & below. Physical Exam 84-year-old female is examined at bedside this morning. Patient's right arm is in a sling. There are no overlying skin changes of the shoulder. There is soft tissue swelling of the shoulder. Patient has tenderness to palpation. No obvious dislocation noted on palpation. Patient is able to flex and extend wrist as well as fingers of the right hand. There is brisk cap refill in the right hand. Results & Data Results & Data Laboratory Results Abnormal Lab Results 05/08/25 05/09/25 05/09/25 19:49 00:30 08:11 WBC 8.24 RBC 2.82 L Hgb 9.1 L Hct 28.0 L MCV 99.3 MCH 32.3 MCHC 32.5 RDW Std Deviation 57.2 H RDW Coeff of Breonna 15.7 H Plt Count 264 MPV 10.1 Immature Gran % (Auto) 1.1 Neut % (Auto) 72.5 Lymph % (Auto) 9.1 [place] % (Auto) 13.1 Eos % (Auto) 3.6 Baso % (Auto) 0.6 Neut # (Auto) 5.97 Lymph # (Auto) 0.75 L [place] # (Auto) 1.08 H Eos # (Auto) 0.30 Baso # (Auto) 0.05 Immature Gran # (Auto) 0.09 PT 10.5 INR 1.0 APTT 26 PTT Ratio 1.0 Sodium 136 139 Potassium 4.3 4.3 Chloride 99 104 Carbon Dioxide 28 27 Anion Gap 9 8 BUN 49 H 43 H Creatinine 2.10 H 1.82 H Est Cr Clr Drug Dosing 15.2 17.5 eGFR 22.52 26.74 BUN/Creatinine Ratio 23.3 H 23.6 H Glucose 128 H 126 H Calcium 10.0 9.6 Phosphorus 3.3 Total Bilirubin 0.4 AST 15 ALT 13 Alkaline Phosphatase 129 H Troponin I High Sens 7.9 Total Protein 6.2 Albumin 3.4 3.5 Globulin 2.8 Albumin/Globulin Ratio 1.2 Lipase 114 H Urine Color Yellow Urine Appearance Clear Urine pH 5.5 Ur Specific [place] 1.015 Urine Protein Negative Urine Glucose (UA) Negative Urine Ketones Negative Urine Blood Negative Urine Nitrite Negative Urine Bilirubin Negative Urine Urobilinogen Negative Ur Leukocyte Esterase 2+ H Urine WBC (Auto) 21-50 H Urine RBC (Auto) 0-2 U Hyaline Cast (Auto) 0-2 U Epithel Cells (Auto) 6-10 H Urine Bacteria (Auto) 1+ H Urine Comment Diagnostic Findings Cervical Spine CT 05/08/25 19:28 Exam(s): CT C SPINE EXAM: CT Cervical Spine Without Intravenous Contrast CLINICAL HISTORY: Trauma. TECHNIQUE: Axial computed tomography images of the cervical spine without intravenous contrast. CTDI is 25.38 mGy and DLP is 1738.39 mGy-cm. Automated exposure control was utilized for the study. A dose lowering technique was utilized adhering to the principles of ALARA. COMPARISON: No relevant prior studies available. FINDINGS: Vertebrae: No acute fracture. Maintenance of height of the vertebral bodies. No subluxation. Discs/spinal canal/neural foramina: Multilevel degenerative throughout the cervical spine. Soft tissues: Prevertebral soft tissues are unremarkable. IMPRESSION: No acute post-traumatic abnormality. Multilevel degenerative changes. Electronically signed by: Rikki Ruffin M.D. 05/08/25 22:05 PM Forearm X-Ray 05/08/25 19:28 Exam(s): XR RIGHT FOREARM, 2 views EXAM: XR Right Forearm, 2 Views CLINICAL HISTORY: Trauma. TECHNIQUE: Frontal and lateral views of the right forearm. COMPARISON: No relevant prior studies available. FINDINGS: Bones/joints: Unremarkable. No acute fracture. No dislocation. Soft tissues: Unremarkable. IMPRESSION: No acute post-traumatic abnormality. Electronically signed by: Rikki Ruffin M.D. 05/08/25 21:[address] 05/08/25 19:28 Exam(s): CT HEAD Without Contrast EXAM: CT Head Without Intravenous Contrast CLINICAL HISTORY: Trauma. TECHNIQUE: Axial computed tomography images of the head/brain without intravenous contrast. CTDI is 25.83 mGy and DLP is 1738.39 mGy-cm. Automated exposure control was utilized for the study. A dose lowering technique was utilized adhering to the principles of ALARA. COMPARISON: 03/11/2025 FINDINGS: Brain: Age-appropriate generalized atrophy. No acute stroke. Diffuse supratentorial periventricular and subcortical white matter changes. No acute hemorrhage or abnormal extra-axial fluid collection. Ventricles: No hydrocephalus. No midline shift. Bones/joints: Unremarkable. No acute fracture. Soft tissues: Unremarkable. Sinuses: Unremarkable as visualized. No acute sinusitis. IMPRESSION: No acute post-traumatic intracranial abnormality. Non-specific white matter changes, most commonly seen with small vessel disease. Electronically signed by: Rikki Ruffin M.D. 05/08/25 21:51 PM Humerus X-Ray 05/08/25 19:28 Exam(s): XR RIGHT HUMERUS, 2+ views EXAM: XR Right Humerus, 3 Views CLINICAL HISTORY: Trauma. TECHNIQUE: Frontal and lateral views of the right humerus. COMPARISON: No relevant prior studies available. FINDINGS: Bones/joints: Acute comminuted and impacted fracture of the right humeral head and neck. Suspected anterior dislocation and displacement of the fractured humeral head relative to the glenoid. Bones are osteopenic. Soft tissues: Soft tissue swelling surrounding the shoulder. IMPRESSION: Acute comminuted and impacted fracture of the right humeral head and neck. Suspected anterior dislocation and displacement of the fractured humeral head relative to the glenoid. Electronically signed by: Rikki Ruffin M.D. 05/08/25 21:[address] 05/08/25 19:28 Exam(s): CT L SPINE EXAM: CT Lumbar Spine Without Intravenous Contrast CLINICAL HISTORY: Trauma. TECHNIQUE: Axial computed tomography images of the lumbar spine without intravenous contrast. CTDI is 25.83 mGy and DLP is 1738.39 mGy-cm. Automated exposure control was utilized for the study. A dose lowering technique was utilized adhering to the principles of ALARA. COMPARISON: CT abdomen pelvis 03/18/2025. FINDINGS: Vertebrae: No acute fracture. Maintenance of height of the vertebral bodies. Severe S shaped scoliosis. Posterior laminectomy with bilateral facet bone fusion material from L4-L5. Bones are osteopenic. Discs/spinal canal/neural foramina: Diffuse degenerative changes greatest along the inner curvature of the scoliosis of the level of right T12-L1 vertebral body and along the inner curvature of the scoliosis from left aspect of the L3 through L5 vertebral bodies. Soft tissues: Atherosclerotic vascular calcifications. Bibasilar atelectasis. IMPRESSION: No acute post-traumatic abnormality. Severe scoliosis with postoperative and degenerative changes as described above. Electronically signed by: Rikki Ruffin M.D. 05/08/25 22:16 PM Tibia/Fibula X-Ray 05/08/25 19:28 Exam(s): XR RIGHT TIB/FIB, 2 views EXAM: XR Right Tibia and Fibula, 2 Views CLINICAL HISTORY: Trauma. TECHNIQUE: Frontal and lateral views of the right tibia and fibula. COMPARISON: No relevant prior studies available. FINDINGS: Bones/joints: Small posterior calcaneal bone spur. No acute fracture. No dislocation. Degenerative changes of the knee greatest in the lateral joint space. Soft tissues: Vascular calcifications. No radiopaque foreign body. IMPRESSION: No acute post-traumatic abnormality. Senescent changes. Electronically signed by: Rikki Ruffin M.D. 05/08/25 21:05 PM Chest X-Ray 05/08/25 19:29 Exam(s): XR CXR 1 VIEW EXAM: XR Chest, 1 View CLINICAL HISTORY: Reason for exam: Trauma. TECHNIQUE: Frontal view of the chest. COMPARISON: Prior chest x-ray from March 26, 2025. FINDINGS: Lungs: Unremarkable. No consolidation. Pleural space: Unremarkable. No pneumothorax. Heart: Mild cardiomegaly. Mediastinum: Tortuous and ectatic aorta. Normal mediastinal contour. Bones/joints: There is an acute right humeral head fracture. Advanced dextroscoliosis of the thoracolumbar junction. Diffuse osteopenia throughout the visualized bones. IMPRESSION: No evidence of acute thoracic injury. If there is continued clinical concern, recommend CT scan of the chest for further evaluation. Acute right humeral head fracture. Electronically signed by: Krysten Chao MD 05/08/25 21:55 PM PG Care Time/CCT Total # of Minutes Spent Total Time Spent with Patient: Total time spent is greater than 50% in coordination of care (as documented) at patient's floor/unit and/or counseling patient: [place] [address] IN/OBS CONSULT LVL 5,80M Patient Type New History Expanded Problem Focused Exam Problem Focused Medical Decision Making Moderate Complexity Diagnoses Closed fracture of head of right humerus S42.291A Encounter type: initial encounter (1) Closed fracture of head of right humerus Encounter type: initial encounter Qualified Code(s): S42.291A - Other displaced fracture of upper end of right humerus, initial encounter for closed fracture
[2025-05-09] MEDS: KETOROLAC TROMETHAMINE 15 MG/ML VIAL IV SCH (08:53)
[2025-05-09 08:54] LABS: Albumin Level 3.5 gm/dl (3.4-5.0); Anion Gap 8.0 (3-11); Blood Urea Nitrogen 43.0 mg/dl (6-23); Calcium 9.6 mg/dl (8.6-10.3); Carbon Dioxide 27.0 mmol/L (21-32); Chloride 104.0 mmol/L (98-107); Creatinine Clr Calc Pharmacy 17.5 ml/min; Glucose 126.0 mg/dl (70-99(Fasting)); Potassium 4.3 mmol/L (3.5-5.1); Sodium 139.0 mmol/L (136-145)
[2025-05-09] MEDS: UMECLIDINIUM/VILANTEROL 62.5/25MCG 7 PUFFS/INHALER INH SCH (08:54)
[2025-05-09] MEDS: PANTOprazole 40 MG/10 ML SYR IV SCH (08:54)
[2025-05-09] MEDS: FLUTICASONE FUROATE 200MCG 14 PUFFS/INHALER INH SCH (08:54)
[2025-05-09] MEDS ORDERED: LIDOCAINE 5% 1 PATCH TD SCH (09:00)
[2025-05-09] MEDS: ACETAMINOPHEN 500 MG TAB PO SCH (12:00)
[2025-05-09] MEDS ORDERED: REMOVE LIDODERM PATCH SCH (21:00)
--- NOTE | 2025-05-09 21:50 | Electrocardiogram Report ---
Test Reason : Blood Pressure : */* mmHG Vent. Rate : 78 BPM Atrial Rate : 78 BPM P-R Int : 194 ms QRS Dur : 64 ms QT Int : 390 ms P-R-T Axes : 76 71 99 degrees QTcB Int : 444 ms Normal sinus rhythm Nonspecific ST abnormality Abnormal ECG When compared with ECG of 26-Mar-2025 14:54, Nonspecific T wave abnormality has replaced inverted T waves in Anterior leads Nonspecific T wave abnormality now evident in Lateral leads Confirmed by Umesh Arreola ([id number]) on 05/09/2025 9:49:57 PM Referred By: [facility] Confirmed By: Umesh Arreola
--- NOTE | 2025-05-10 07:39 | Hospitalist Progress Note ---
Date of Service May 10, 2025 Assessment & Plan (1) Closed fracture of head of right humerus: (2) Anterior dislocation of right shoulder: (3) Osteoporosis with current pathological fracture: (4) Fall: (5) Abrasion of right elbow: (6) Right forearm pain: (7) Pain of right lower leg: (8) Chronic anticoagulation: (9) Chronic kidney disease, stage 4 (severe): (10) Hypertensive heart disease with chronic diastolic congestive heart failure: (11) COPD (chronic obstructive pulmonary disease): (12) Dependence on supplemental oxygen: Plan In summary this is an 84-year-old female admitted to [facility] after a ground-level fall that was unwitnessed resulting in right anterior glenohumeral dislocation and humeral head fracture #Right glenohumeral anterior dislocation with right humeral head fracture // Ground level fall, unwitnessed // Osteoporosis with pathologic fracture, initial encounter Regarding the patient's fracture, orthopedic surgery is considering surgical intervention however the patient is chronically anticoagulated with Eliquis, requiring delaying her surgical intervention until this is cleared; patient does have a previous diagnosis of osteoporosis but does not appear to be on any prescribed or [id number] medications for prevention of progressive disease, this will be initiated as detailed below; since surgical intervention has been determined not a course of action her anticoagulation will be c ontinued; the patient expresses significant discomfort with their peripheral IV and decline any IV medications, leading to difficulty with controlling her pain as this provider was not made aware; we will transition her medications to oral only at their request Continue acetaminophen 1000 mg p.o. every 8 hours scheduled Start ibuprofen 400 mg p.o. twice daily Continue hydromorphone 1 mg p.o. every 3 hours as needed for severe breakthrough pain - Start Miralax 17 g p.o. daily - Start bisacodyl 5 mg p.o. at bedtime Continue vitamin D and calcium supplementation Orthopedic surgery consulted #Chronic anticoagulation The patient is chronically anticoagulated with Eliquis 2.5 mg p.o. twice daily however there is no documented medical problem for which they take this medication and the patient is unsure; resume 05/10 Remainder of the patient's chronic medical conditions are without acute exacerbation; we will continue her routine medical care for these conditions during her hospitalization Admission and Anticipated Discharge Date Admission Date: May 09, 2025 Subjective Ms. Mustafa is an 84-year-old female whose active medical conditions include osteoporosis, CKD stage 4 in the setting of hypertension, heart failure with preserved ejection fraction among other chronic medical conditions who presented to the [facility] On 05/08 after an unwitnessed fall sustained at their facility resulting in significant pain and inability to move the right shoulder joint subsequently admitted for orthopedic surgery evaluation and pain management due to a sustained right humeral head comminuted fracture. No acute events since admission; patient is relatively comfortable with respect to their expected discomfort considering their injury. They deny any distal paresthesias or loss of motor function of the affected extremity. Review of Systems Review of Systems: Review of constitutional, cardiovascular, pulmonary, gastrointestinal, neurologic, musculoskeletal systems was unremarkable except for as detailed above Physical Exam Physical Exam: General: Elderly female in no acute distress Vital Signs: Reviewed HEENT: Pupils equally round reactive to light; extraocular motion intact; moist mucous membranes Pulmonary: Symmetric chest wall excursion without restriction; clear to auscultation bilaterally Cardiovascular: Regular rate and rhythm without murmurs, rubs, or gallops; S1 and S2 normal; right radial pulse 2+ with brisk capillary refill Gastrointestinal: Soft, nondistended MSK: shoulder range of motion assessment was deferred given fracture Neurologic: Cranial nerves II to XII grossly intact; no discernible focal weakness nor paresthesia excluding assessment of right shoulder movement considering patient's acute injury Skin: Ecchymosis overlying the lateral shoulder extending anteriorly without palpable hematoma; left thenar eminence has a crescent shaped laceration that was not approximated with sutures on initial evaluation, at this time does not appear devitalized and remains approximated with dressings Results & Data Results & Data Vital Signs (Past 12 Hours) Vital Signs Temp Pulse Resp BP Pulse Ox O2 Del Method O2 Flow Rate 05/10/25 07:22 36.3 C L 88 18 128/75 98 Nasal Cannula 2 05/09/25 22:10 36.5 C 92 H 14 98/70 L 98 Nasal Cannula 2.5 05/09/25 20:20 Nasal Cannula 2 PG Care Time/CCT Total # of Minutes Spent Total Time Spent with Patient: Total time spent is greater than 50% in coordination of care (as documented) at patient's floor/unit and/or counseling patient: Coding Level of Care Code 40697 SUB INP/OBS CARE 2/35MIN Diagnoses Closed fracture of head of right humerus S42.291A Encounter type: initial encounter Anterior dislocation of right shoulder S43.014A Encounter type: initial encounter Age-related osteoporosis with current pathological fracture, initial encounter M80.00XA Encounter type: initial encounter Osteoporosis type: age-related Fall W19.XXXA Encounter type: initial encounter Abrasion of right elbow S50.311A Encounter type: initial encounter Right forearm pain M79.631 Pain of right lower leg M79.661 Chronic anticoagulation Z79.01 Chronic kidney disease, stage 4 (severe) N18.4 Hypertensive heart disease with chronic diastolic congestive heart failure I11.0; I50.32 Simple chronic bronchitis J41.0 COPD type: chronic bronchitis Chronic bronchitis type: simple Dependence on supplemental oxygen Z99.81 (1) Closed fracture of head of right humerus Encounter type: initial encounter Qualified Code(s): S42.291A - Other displaced fracture of upper end of right humerus, initial encounter for closed fracture (2) Anterior dislocation of right shoulder Encounter type: initial encounter Qualified Code(s): S43.014A - Anterior dislocation of right humerus, initial encounter (3) Osteoporosis with current pathological fracture Encounter type: initial encounter Osteoporosis type: age-related Qualified Code(s): M80.00XA - Age-related osteoporosis with current pathological fracture, unspecified site, initial encounter for fracture (4) Fall Encounter type: initial encounter Qualified Code(s): W19.XXXA - Unspecified fall, initial encounter (5) Abrasion of right elbow Encounter type: initial encounter Qualified Code(s): S50.311A - Abrasion of right elbow, initial encounter (11) COPD (chronic obstructive pulmonary disease) COPD type: chronic bronchitis Chronic bronchitis type: simple Qualified Code(s): J41.0 - Simple chronic bronchitis
[2025-05-10] MEDS: IBUPROFEN 200 MG TAB PO SCH (12:24)
[2025-05-10] MEDS: SPIRONOLACTONE 12.5 MG TAB PO SCH (15:26)
[2025-05-10] MEDS: ONDANSETRON 4 MG OD TAB PO PRN (20:14)
[2025-05-10] MEDS: APIXABAN 2.5 MG TAB PO SCH (20:15)
[2025-05-10] MEDS: ATORVASTATIN 40 MG TAB PO SCH (20:15)
[2025-05-10] MEDS: CALCIUM CARBONATE 1250MG TAB PO SCH (20:20)
[2025-05-10] MEDS: METOPROLOL TARTRATE 25 MG TAB PO SCH (20:22)
[2025-05-11 07:29] VITALS: BP 136/64; RESP 14; TEMP 97.7; O2SAT 92
[2025-05-11] MEDS ORDERED: SERTRALINE HCL 50 MG TABLET PO SCH ×2 (09:00)
[2025-05-11] MEDS: CHOLECALCIFEROL 125 MCG (5,000 UNITS) TAB PO SCH (09:25)
[2025-05-11] MEDS: TORSEMIDE 20 MG TAB PO SCH (09:25)
[2025-05-11] MEDS: POLYETHYLENE (MIRALAX) 17 GM PACK PO SCH (09:34)
--- NOTE | 2025-05-11 09:48 | Discharge Summary ---
Discharge Summary Date of Service May 11, 2025 Principal Dx & Hospital Course #1 = Principal Diagnosis (1) Closed fracture of head of right humerus: (2) Anterior dislocation of right shoulder: (3) Osteoporosis with current pathological fracture: (4) Fall: (5) Abrasion of right elbow: (6) Right forearm pain: (7) Pain of right lower leg: (8) Chronic anticoagulation: (9) Chronic kidney disease, stage 4 (severe): (10) Hypertensive heart disease with chronic diastolic congestive heart failure: (11) COPD (chronic obstructive pulmonary disease): (12) Dependence on supplemental oxygen: Plan In summary this is an 84-year-old female admitted to [facility] after a ground-level fall that was unwitnessed resulting in right anterior glenohumeral dislocation and humeral head fracture #Right glenohumeral anterior dislocation with right humeral head fracture // Ground level fall, unwitnessed // Osteoporosis with pathologic fracture, initial encounter Regarding the patient's fracture, orthopedic surgery is considering surgical intervention however the patient is chronically anticoagulated with Eliquis, requiring delaying her surgical intervention until this is cleared; patient does have a previous diagnosis of osteoporosis but does not appear to be on any prescribed or [id number] medications for prevention of progressive disease, this will be initiated as detailed below Continue acetaminophen 1000 mg p.o. every 8 hours scheduled Continue ibuprofen 400 mg p.o. twice daily Continue hydromorphone 1 mg p.o. every 6 hours as needed for severe breakthrough pain - Continue Miralax 17 g p.o. daily - Continue bisacodyl 5 mg p.o. at bedtime Continue vitamin D and calcium supplementation Orthopedic surgery consulted; no indication for surgical intervention, follow up after discharge #Chronic anticoagulation The patient is chronically anticoagulated with Eliquis 2.5 mg p.o. twice daily however there is no documented medical problem for which they take this medication and the patient is unsure; resumed 05/10 Remainder of the patient's chronic medical conditions are without acute exacerbation; we will continue her routine medical care for these conditions during her hospitalization Notes For Next Care Provider Medication Changes From Visit Stop Sertraline, unclear if taking and patient is well established on Seroquel; deprescribed due to risks of polypharmacy Admission HPI Per Admitting Provider The patient is an 84-year-old female with a past medical history including esophageal dysphagia, hyperlipidemia, bladder dysfunction, interval bowel syndrome, sacroiliitis, hypertension, COPD, depression and anxiety, history of RCA drug-eluting stent, hypertensive heart disease, chronic diastolic heart failure, and history of intestinal obstruction. The patient is referred to the emergency department from [facility] after a ground-level fall and sustained right upper arm pain, with x-ray in the ED showing an acute right humeral head and neck fracture. She reports that she was getting something out of her top dresser drawer, and then she found herself up in the air and then onto the ground. She does not have any other recollection of events before or immediately after falling other than having significant pain in her right arm and shoulder. She had less pain in the right lower leg. She does report hitting her head, but denies loss of consciousness. She is on Eliquis, and therefore had CT scan of the head, and cervical spine, both of which were negative for acute events. CT scan of the lumbar spine showed severe scoliosis and postoperative changes. X-ray of the right tib/fib were negative. X-rays of the right forearm were negative. From the ED the patient received the following: Normal saline for 2050 mL bolus, Tylenol 1 g IV, Zofran 4 mg IV, and serial doses of fentanyl 50 mcg, then 25 mcg, then 25 mcg IV. The patient was then referred for evaluation for admission to the [facility]. Discharge Exam General: Elderly female in no acute distress Vital Signs: Reviewed HEENT: Pupils equally round reactive to light; extraocular motion intact; moist mucous membranes Pulmonary: Symmetric chest wall excursion without restriction; clear to auscultation bilaterally Cardiovascular: Regular rate and rhythm without murmurs, rubs, or gallops; S1 and S2 normal; right radial pulse 2+ with brisk capillary refill Gastrointestinal: Soft, nondistended MSK: shoulder range of motion assessment was deferred given fracture Neurologic: Cranial nerves II to XII grossly intact; no discernible focal weakness nor paresthesia excluding assessment of right shoulder movement considering patient's acute injury Skin: Ecchymosis overlying the lateral shoulder extending anteriorly without palpable hematoma; left thenar eminence has a crescent shaped laceration that was not approximated with sutures on initial evaluation, at this time does not appear devitalized and remains approximated with dressings Discharge Plan Discharge Items Patient Disposition: Personal Jail Reason For Visit: RIGHT HUMERAL HEAD AND NECK FRACTURE POST GLF Discharge Diagnosis: Right humeral head fracture // Osteoporotic fracture // Left thenar laceration Condition on Discharge: Fair Activity: Per Instructions section Non-emergency contact: Primary Care Provider and Surgeon Call non-emergency contact if: you have any medication questions, your symptoms worsen and your pain is not controlled Follow-up/Referrals: ERA Chirinos [Primary Care Provider] - Keith Lane DO [Physician] - Diet: Low Potassium (2gm) and Low Fat Fluids: 2000ml (8 cups) Addtl Attending Provider Instructions: You were admitted to [facility] for a right glenohumeral anterior dislocation with right humeral head fracture after a ground-level fall that was unwitnessed. With respect to your fracture, you were evaluated by orthopedic surgery who do not recommend surgical intervention at this time. Please follow their recommendations as detailed below. For continued pain management and prevention of adverse effects associated with these medications, please follow the following medication regimen. Continue acetaminophen 1000 mg p.o. every 8 hours Continue ibuprofen 40 mg p.o. twice daily for 7 days, reevaluate renal function at that time; the relative risk of NSAID therapy in the stage of the patient's kidney dysfunction compared to the risks associated with opiate medications favors NSAID use at this time Continue hydromorphone 1 mg p.o. every 6 hours as needed for severe breakthrough pain Continue MiraLAX 17 g p.o. daily Continue bisacodyl 5 mg p.o. at bedtime Continue vitamin D and calcium supplementation Thank you for choosing [facility] as your healthcare provider. Pending Studies at Discharge: No Stand-Alone Forms: My [facility], Pain - Opioid Pain Management Skilled Items Patient informed of condition?: Yes DNR: Yes Discharge Level of Care: Other Communicable Disease: No Discharge Prognosis: Stable Lines: None Urinary Catheter: No Medications and DC Order Prescriptions: New polyethylene glycol 3350 [Miralax] 17 gram Powder In Packet 17 g PO DAILY 30 Days Qty: 30 0RF bisacodyl [Gentle Laxative (bisacodyl)] 5 mg Tablet,Delayed Release (Dr/Ec) 5 mg PO HS 30 Days Qty: 30 0RF ondansetron 4 mg Tablet,Disintegrating 4 mg PO Q4H PRN (Reason: nausea and vomiting) 10 Days Qty: 20 0RF cholecalciferol (vitamin D3) 125 mcg (5,000 unit) Tablet 125 mcg PO QAM 30 Days Qty: 30 0RF naloxone 3 mg/actuation spray,non-aerosol 3 mg intranasal Q5M PRN (Reason: opioid reversal) 14 Days Qty: 2 0RF acetaminophen [Tylenol Extra Strength] 500 mg Tablet 1,000 mg PO Q8H 30 Days Qty: 180 0RF hydromorphone [Dilaudid] 2 mg Tablet 1 mg PO Q6H PRN (Reason: Severe breakthrough pain) 5 Days Qty: 10 0RF ibuprofen 200 mg Tablet 400 mg PO BID 14 Days Qty: 56 0RF Continued spironolactone 25 mg tablet 12.5 mg PO .MON,SAT,SAT Breztri Aerosphere 160-9-4.8 mcg/actuation HFA aerosol inhaler 2 inh inhalation BID cranberry 500 mg capsule 500 mg PO DAILY lactase [Dairy-Aid] 3,000 unit tablet 3,000 unit PO TID Rx Instructions: administer 6 am,11am,and 4 pm 11am 1600 estradiol 0.01 % (0.1 mg/gram) cream 1 appful vaginal . AND SATURDAY Rx Instructions: pea sized amount to urethral opening PreserVision AREDS 4,296 mcg-226 mg-90 mg capsule 1 cap PO BID lidocaine 4 % adhesive patch,medicated 1 patch topical DAILY Rx Instructions: on in the am off in the pm Saccharomyces boulardii 250 mg capsule 250 mg PO DAILY quetiapine [Seroquel] 25 mg tablet 12.5 mg PO BID Rx Instructions: 1/2 tab bid metoprolol tartrate 25 mg tablet 12.5 mg PO BID Eliquis 2.5 mg tablet 2.5 mg PO BID atorvastatin 40 mg tablet 40 mg PO HS ipratropium-albuterol 0.5 mg-3 mg(2.5 mg base)/3 mL solution for nebulization 3 ml inhalation QID PRN (Reason: cough/wheezing) acetaminophen [Tylenol Extra Strength] 500 mg tablet 1,000 mg PO DAILY PRN (Reason: Fever Or Pain) torsemide 20 mg tablet 20 mg PO DAILY (DME) Oxygen Home Liters Per Minute cholecalciferol (vitamin D3) [Vitamin D3] 25 mcg (1,000 unit) capsule 125 mcg PO DAILY cyanocobalamin (vitamin B-12) [Vitamin B-12] 1,000 mcg Tablet 1,000 mcg PO DAILY tramadol 50 mg Tablet 50 mg PO Q6H PRN (Reason: Pain) Clear Fiber 3 gram/4 gram Powder 2 tsp PO TID Rx Instructions: mix in 4-8 oz of liquid and drink acetaminophen 500 mg Tablet 1,000 mg PO AMHS Rx Instructions: 6 am & bedtime lorazepam 0.5 mg Tablet 0.5 mg PO Q6 PRN (Reason: Anxiety) Gas Relief (simethicone) 1 - 2 cap PO UD PRN (Reason: bloating,pressure,fullness) Rx Instructions: 1-2 gel caps after meals and before bedtime Discontinued sertraline 25 mg Tablet 25 mg PO DAILY sertraline 50 mg Tablet 50 mg PO DAILY nitrofurantoin monohyd/m-cryst 100 mg Capsule 100 mg PO BID Rx Instructions: must administer with a meal/food for 8 days started 05/03/25 to stop 05/11/25 Discharge Orders: Discharge Order (Routine); Ordered 05/11/25 Ordered By: Zev Baltazar Admission Data Admit Date/Time: 05/09/25 01:43 Attending Provider: Zev Baltazar Admit Provider: Juancarlos Negrete Primary Care Provider: ERA Chirinos Other Providers: Keith Lane; Juancarlos Negrete Hospital Stay Data Consultations 05/09/25 00:26 ED Decision to Admit Stat 05/09/25 01:43 Consult Orthopedic Surgery Routine Diagnostic Imagining Performed 05/08/25 19:28 CT cervical spine wo con Stat CT head/brain wo con Stat CT lumbar spine wo con Stat Pending Results Patient Have Any Pending Studies at Discharge: No Discharge Instructions Given to Patient (Per Discharging Provider) You were admitted to [facility] for a right glenohumeral anterior dislocation with right humeral head fracture after a ground-level fall that was unwitnessed. With respect to your fracture, you were evaluated by orthopedic surgery who do not recommend surgical intervention at this time. Please follow their recommendations as detailed below. For continued pain management and prevention of adverse effects associated with these medications, please follow the following medication regimen. Continue acetaminophen 1000 mg p.o. every 8 hours Continue ibuprofen 40 mg p.o. twice daily for 7 days, reevaluate renal function at that time; the relative risk of NSAID therapy in the stage of the patient's kidney dysfunction compared to the risks associated with opiate medications favors NSAID use at this time Continue hydromorphone 1 mg p.o. every 6 hours as needed for severe breakthrough pain Continue MiraLAX 17 g p.o. daily Continue bisacodyl 5 mg p.o. at bedtime Continue vitamin D and calcium supplementation Thank you for choosing [facility] as your healthcare provider. Total Time Total Time Spent Total Time Spent (In Minutes): I personally spent 40 minutes in the coordination of discharge including bedside counseling, physical exam, review of the medical record, coordination of follow up care with specialists, and medication reconciliation Coding Level of Care Code 63026 INP/OBS DISCH >30 MIN Diagnoses Closed fracture of head of right humerus S42.291A Encounter type: initial encounter Anterior dislocation of right shoulder S43.014A Encounter type: initial encounter Age-related osteoporosis with current pathological fracture, initial encounter M80.00XA Osteoporosis type: age-related Encounter type: initial encounter Fall W19.XXXA Encounter type: initial encounter Abrasion of right elbow S50.311A Encounter type: initial encounter Right forearm pain M79.631 Pain of right lower leg M79.661 Chronic anticoagulation Z79.01 Chronic kidney disease, stage 4 (severe) N18.4 Hypertensive heart disease with chronic diastolic congestive heart failure I11.0; I50.32 Simple chronic bronchitis J41.0 COPD type: chronic bronchitis Chronic bronchitis type: simple Dependence on supplemental oxygen Z99.81
[2025-05-11 10:29] VITALS: PULSE 89
== END 2025-05-11 11:20 | disposition home or self-care (01) ==
LOC: SUATTDRO → ED 19:15 → SUATTDRO 05-09 01:43 → INTOOBSV 05-09 01:43 → EDINP 05-09 01:43 → 3N 05-09 03:31